=== PATIENT | female | born 1970 | race Caucasian/White ===

== ENCOUNTER 2021-12-04 13:06 | Emergency (ER) | payer OTHER, SELFPAY ==
[2021-12-04 13:25] VITALS: BP 113/61; PULSE 55; RESP 16; TEMP 36; O2SAT 98
--- NOTE | 2021-12-04 14:17 | ED.URI ---
HPI - URI/Sore Throat General Chief Complaint: Upper Respiratory Infection Stated Complaint: congestion, sore throat Time Seen by Provider: 12/04/21 13:30 Source: patient Mode of arrival: ambulatory Limitations: no limitations History of Present Illness HPI Narrative: Mrs. Platt is a 51-year-old female patient presenting to the clinic today with complaints of cough/ congestion, sore throat, and sinus pressure x2 weeks. She reports she is having greenish colored phlegm. She reports she had fever at the beginning of her symptoms however fever has now resolved. States that her was tested positive for COVID yesterday MD elicited complaint: sore throat and nasal congestion Related Data Home Medications Medication Instructions Recorded Confirmed buprenorphine 8 mg-naloxone 2 mg 1 film sublingual DIRECTED 12/04/21 12/04/21 sublingual film Allergies Allergy/AdvReac Type Severity Reaction Status Date / Time No Known Allergies Allergy Unverified 12/04/21 13:29 Review of Systems Review of Systems: Pertinent positives per HPI. Patient denies any fever, chills, rash, headache, visual changes, dizziness, shortness of breath, chest pain, palpitations, nausea, vomiting, diarrhea, constipation, abdominal pain, or any urinary issues. PMFSH Comments At the time of my signature, I reviewed and agree with the nursing past medical, surgical, social, and family history. There is no relevant family history pertinent to the patient complaint. Exam Narrative: General: Well-developed, well nourished, in no apparent distress Head: Normocephalic, atraumatic Eyes: Pupils equally round and reactive to light bilaterally, EOM intact, sclera and conjunctive clear, no discharge, lids normal Ears: TMs intact and clear, ear canals clear, no drainage, grossly hearing normal. Nose: Nares patent, green nasal discharge, monitor inflammation, maxillary and frontal sinus tenderness. Mouth: Oral pharynx without lesions or masses, good dentition, MMM. Neck: Supple, trachea midline, no enlargement of anterior or posterior cervical nodes, no thyroid masses or goiter palpable. Cardio: Regular rate and rhythm, s1 and s2 normal, no murmur appreciated. Resp: expiratory wheezing to the left and right middle lobe posterior, no rhonchi, rales, or rubs Course Course Emergency Course: Portions of this record may have been created with voice recognition software. Level of Care: Express Care Visit Vital Signs Vital signs: Vital Signs Temperature 36.0 C L 12/04/21 13:25 Pulse Rate 55 L 12/04/21 13:25 Respiratory Rate 16 12/04/21 13:25 Blood Pressure 113/61 12/04/21 13:25 Pulse Oximetry 98 12/04/21 13:25 Oxygen Delivery Room Air 12/04/21 13:25 Temperature 36.0 C L 12/04/21 13:25 Pulse Rate 55 L 12/04/21 13:25 Respiratory Rate 16 12/04/21 13:25 Blood Pressure 113/61 12/04/21 13:25 Pulse Oximetry 98 12/04/21 13:25 Oxygen Delivery Room Air 12/04/21 13:25 Vital signs reviewed MDM - URI/Sore Throat MDM Narrative Medical decision making narrative: at the time of visit patient is resting comfortably on the exam table. I suspect the patient has bronchitis and sinusitis. Prescription for Augmentin, albuterol inhaler, and prednisone sent to the pharmacy. Supportive measures were discussed with the patient she voiced understanding of discharge instructions and agrees to the treatment plan. Differential Diagnosis Differential diagnosis: Likely upper respiratory infection, otitis media, sinusitis, viral infection, bronchitis, influenza, pharyngitis and other ( COVID) Discharge Plan Discharge Clinical Impression: Sinusitis, Bronchitis Patient Disposition: Home, Self-Care Condition: Stable Instructions: Antibiotic Form, Sinusitis (ED), Acute Bronchitis (ED) Additional Instructions: Take prescription medications only as prescribed- albuterol inhaler, prednisone, and Augmentin Incre
== END 2021-12-04 14:22 | disposition home or self-care (01) ==
PROVIDERS: Emergency Provider Nurse Practitioner Family
DX: J32.9 Chronic sinusitis, unspecified (principal); J40 Bronchitis, not specified as acute or chronic
CPT/HCPCS: 99213; G0463

== ENCOUNTER 2023-06-15 09:06 | Outpatient (CLI) | payer OTHER, SELFPAY ==
--- NOTE | ~2023-06-15 | MMUS_ITS ---
EXAMINATION: MM diagnostic marilee BI w nam, US breast BI complete HISTORY: Bilateral breast lumps. TECHNIQUE: ML, MLO and CC 3-D tomosynthesis images of were performed and synthetic 2-D images were [employer]. Bilateral rotation lateral CC views. CAD analysis was submitted and interpreted. High resolu tion complete bilateral breast ultrasound examination including all 4 quadrants and subareolar area o f each breast was performed. COMPARISON: 02/08/2017 bilateral diagnostic mammography and bilateral complete breast ultrasound examin ation BREAST PARENCHYMAL COMPOSITION: The breasts are heterogeneously dense, which may obscure small masses . FINDINGS: MAMMOGRAPHIC FINDINGS: There is a low-density circumscribed approximately 1.4 cm opacity in the posterior outer mid left silverio ast. No suspicious mass, architectural distortion, malignant calcification, skin thickening or retraction of either breast is evident. ULTRASOUND: No suspicious mass or shadowing either breast is evident. Right breast: 2:00 6 cm from nipple: 3.8 x 5.4 mm hypoechoic lesion without internal vascularity or posterior featu res. Left breast: 12:00 6 cm from nipple: 3.4 x 4.4 mm circumscribed sonolucency with through transmission and posterio r enhancement consistent with simple cyst 1:00 8 cm from nipple: 3 x 4.4 mm dumbbell shaped circumscribed hypoechoic lesion without posterior s hadowing 2:00 7 cm from nipple: 1.4 cm circular relatively sonolucent lesion with through transmission and pos terior enhancement, likely a benign cyst IMPRESSION: 1. Benign findings 2. Routine annual mammographic screening is recommended. BI-RADS Category 2: Benign finding(s). Reviewed, dictated and finalized at location B. IMPRESSION: 1. Benign findings 2. Routine annual mammographic screening is recommended. BI-RADS Category 2: Benign finding(s).
== END 2023-06-15 09:07 ==
LOC: MICIMG 09:08
PROVIDERS: PCP Obstetrics & Gynecology; Visit Provider Obstetrics & Gynecology
DX: N63.11 Unspecified lump in the right breast, upper outer quadrant (principal); N63.22 Unspecified lump in the left breast, upper inner quadrant
CPT/HCPCS: 76641; 77062; 77066; G0279

== ENCOUNTER 2024-06-25 11:37 | Observation (INO) | payer OTHER, SELFPAY ==
--- NOTE | ~2024-06-25 | XR_ITS ---
INTRAOPERATIVE FLUOROSCOPY: CLINICAL HISTORY: 53 years old Female; RECENT LAP [facility]ENN[facility]ER IOCS PROCEDURE COMMENTS: Limited intraoperative fluoroscopy of the right upper quadrant was performed. CUMULATIVE DOSE: 42 mGy FLUOROSCOPY TIME: 159 seconds FINDINGS/IMPRESSION: Please refer to operative note for further details. Reviewed, dictated and finalized at location A.
--- NOTE | ~2024-06-25 | XR_ITS ---
EXAMINATION: XR cholangiogram surg 1st inj DATE: 06/26/2024 15:36 INDICATION: Intraoperative evaluation during laparoscopic cholecystectomy TECHNIQUE: Multiple fluoroscopic images of the right upper quadrant were obtained during intraoperati ve cholangiography. A total of 185 fluoroscopic images were obtained. The amount of fluoroscopy time used during this procedure was 0.6 minutes. Total DAP was 0.471 mGycm^2 COMPARISON: None FINDINGS: Contrast injection post cannulation of the cystic duct demonstrates filling of a normal joni earing common bile duct which tapers smoothly distally. There is a meniscus sign at the distalmost du ct consistent with obstructing stone with no contrast extending beyond the stone into the duodenum. T here is reflux of contrast into the normal-appearing intrahepatic biliary tree with subsequent spilla ge of contrast at the site of contrast injection. IMPRESSION: 1. Small obstructing stone at the distalmost common bile duct with no contrast extending into the duo denum. Dr. Reynoso discussed these findings with Dr. Zhou at the time of the procedure. Reviewed, dictated and finalized at location A. IMPRESSION: 1. Small obstructing stone at the distalmost common bile duct with no contrast extending into the duodenum. Dr. Reynoso discussed these findings with Dr. Rosa Elena ricardo at the time of the procedure.
--- NOTE | ~2024-06-25 | US_ITS ---
EXAM: ABDOMEN ULTRASOUND HISTORY: pancreatitis, cholelithiasis COMPARISON: Reference is made to CT examination of the abdomen and pelvis performed 3 hours earlier. FINDINGS: LIVER: The liver is unremarkable in echogenicity and size. The portal vein is patent, demonstrating hepatopedal flow. GALLBLADDER: Multiple stones are identified within the gallbladder, which is otherwise unremarkable. The stones are bulky and mobile. No gallbladder wall thickening or pericholecystic fluid. BILE DUCTS: Common bile duct measures 5mm. PANCREAS: Limited evaluation of the pancreas secondary to overlying bowel gas IMPRESSION: Cholelithiasis, without ultrasound evidence of cholecystitis. Reviewed, dictated and finalized at location A.
--- NOTE | ~2024-06-25 | XR_ITS ---
EXAMINATION: XR chest 1V portable DATE: 06/27/2024 16:19 INDICATION: Postoperative wheezing TECHNIQUE: frontal view of the chest was obtained. COMPARISON: Chest radiograph dated CT abdomen pelvis dated 06/25/2024 FINDINGS: Perihilar and lower lung predominant increased interstitial pattern in both lungs with some periphera l Jerod B-lines at the lateral right lower lung zone consistent with worsening mild pulmonary edema. With dense opacities at the left lower lung zone consistent with increasing small left pleural effus ion with left basilar atelectasis or pneumonia. No pneumothorax. Heart size is normal. IMPRESSION: 1. New perihilar and lower lung predominant interstitial pulmonary edema. 2. Increasing small left pleural effusion with associated left basilar atelectasis and/or pneumonia. Reviewed, dictated and finalized at location A. IMPRESSION: 1. New perihilar and lower lung predominant interstitial pulmonary edema. 2. Increasing small left pleural effusion with associated left basilar atelecta sis and/or pneumonia.
--- NOTE | ~2024-06-25 | CT_ITS ---
CLINICAL INDICATION: Mid abdominal pain COMPARISON: None. TECHNIQUE: Multiple contiguous axial images of the abdomen and pelvis were performed following the ad ministration of with 100 mL Omnipaque-350 intravenous contrast The dose-length product (DLP) was 484.05 mGy-cm. Automated exposure control and iterative reconstruction technique were employed. FINDINGS/OBSERVATIONS: Visualized lower thorax: Trace bilateral pleural effusions with adjacent compressive atelectasis. The remainder of the bilateral lung bases are clear. The heart is of normal size, without pericardial effusion. Moderate hiatal hernia is present. Liver: The liver demonstrates homogeneous enhancement and is not enlarged. Gallbladder and biliary system: The gallbladder is only minimally distended, and contains layering stones/sludge. Pancreas: The pancreas is edematous and enhances homogeneously without ductal dilatation. Inflammatory change within the lesser sac, suggesting pancreatitis. Spleen: The spleen enhances homogeneously and is not enlarged measuring 8 cm in longitudinal dimension. Kidneys: The bilateral kidneys enhance symmetrically without hydronephrosis or renal calculi. Adrenal glands: Unremarkable. Gastrointestinal tract: Colonic diverticulosis without surrounding inflammatory change. Fecal stasis within the colon. Appendix: The air-filled appendix is of normal caliber (axial series, images 123 - 160). Vasculature: Unremarkable. Lymph nodes: No pathologically enlarged or morphologically suspicious lymph nodes within the retroperitoneum or at the root of the mesentery. Pelvic structures: The bladder is distended, and otherwise unremarkable. The uterus is anteverted and anteflexed. Body wall and musculoskeletal: Small fat-containing umbilical hernia. No significant degenerative disease within the lower thoracic or lumbosacral spine. IMPRESSION: Acute pancreatitis with significant fecal stasis, as detailed above. Reviewed, dictated and finalized at location A.
--- OUTSIDE RECORDS SUMMARY | 2024-06-25 11:40 | XMS_ITS | Continuity of Care Document ---
Author Organization [facility] Address [address] [place] [address] [facility] [address] [place] [address] Phone Care Team Providers Care Hammer Runner Name Role Phone Fran Acevedo Unavailable Unavailable Procedures Procedure Date Office/outpatient Visit, [facility] Advance Directives Directive Yes / No Effective Date File Name No Information Encounters Encounter Description Practice Location Reason(s) For Visit Diagnoses Date Provider Providers Copied on Encounter Office/outpat ient Visit, [facility], [address], [place], [place], [id number], [place] tel:[phone] [facility] No Information [address] Curtis Peters. [address] [facility] [address], [place], [address], [place]. tel:[phone] Referring Provider: Ayden Tejeda, [address] [place], [place], [facility]. tel:[phone] Family History Family Member Type Diagnosis Age At Onset No Information Payers Payer name Insurance type Covered green party ID Authoriza tion(s) No Information Social History Type Description Quantity Date Captured Comments Sex Female Smoking Status No Information Chief Complaint And Reason For Visit No Information Reason For Referral Reason For Referral No Information History Of Present Illness Encounter Date Complaint History Of Prese nt Illness No Information Functional Status Date Functional Assessmen t No Information Instructions Date Instruction Additional Infor mation No Information Assessments Type Assessment Date No Information Patient Care Teams Name Effective Dates (start - stop) Status Members No Information
[2024-06-25 11:41] VITALS: BP 128/76; PULSE 78; RESP 20; TEMP 36.2; O2SAT 98
[2024-06-25 12:37] LABS: Basophils Percent Auto 0.1 % (0.2-1.2); Eosinophils Percent Auto 0.1 % (0-4.4); Hemoglobin 13.4 g/dL (12.0-15.0); Immature Granulocyte Absolute 0.07 K/mm3 (0.00-0.031); Immature Granulocyte Percent A 0.5 % (0-0.5); Lymphocytes Absolute Auto 1.19 K/mm3 (0.9-3.2); Lymphocytes Percent Auto 8.5 % (18.3-44.2); Mean Corpuscular HGB Conc 33.5 g/dl (32-36); Mean Corpuscular Hemoglobin 29.5 pg (26-34); Mean Corpuscular Volume 87.9 fl (80-100); Monocytes Percent Auto 6.8 % (2.6-8.5); Neutrophils Absolute Auto 11.8 K/mm3 (1.3-6.7); Platelet Count Result 199 k/mm3 (150-375); Red Blood Count 4.55 M/mm3 (4.2-5.4); White Blood Count 14.1 K/mm3 (4.5-10.0)
--- OUTSIDE RECORDS SUMMARY | 2024-06-25 12:39 | XMS_ITS | Continuity of Care Document ---
Author Organization [facility] Address [address] [place] [address] [facility] [address] [place] [address] Phone Care Team Providers Care Desk Lieutenant Name Role Phone Fran Aceveod Unavailable Unavailable Procedures Procedure Date Office/outpatient Visit, [facility] Advance Directives Directive Yes / No Effective Date File Name No Information Encounters Encounter Description Practice Location Reason(s) For Visit Diagnoses Date Provider Providers Copied on Encounter Office/outpat ient Visit, [facility], [address], [place], [place], [id number], [place] tel:[phone] [facility] No Information [address] Curtis Peters. [address] [facility] [address], [place], [address], [place]. tel:[phone] Referring Provider: Ayden Tejeda, [address] [place], [place], [facility]. tel:[phone] Family History Family Member Type Diagnosis Age At Onset No Information Payers Payer name Insurance type Covered constitution party ID Authoriza tion(s) No Information Social [...]
[2024-06-25 12:49] LABS: Alanine Aminotransferase 163 U/L (6-35); Albumin Level 4.4 g/dL (3.5-5.1); Alkaline Phosphatase 116 U/L (38-126); Anion Gap 8 mmol/L (4-12); Aspartate Amino Transferase 55 U/L (14-36); Bilirubin,Total 0.7 mg/dL (0.2-1.3); Blood Urea Nitrogen 17 mg/dL (7-17); Calcium 8.8 mg/dL (8.4-10.2); Carbon Dioxide 30 mmol/L (22-30); Chloride 96 mmol/L (98-107); Estimated CRCL calculation 86 ml/min; Estimated Glomerular Filt Rate > 60; Glucose 118 mg/dL (65-110); Lipase 442 U/L (23-300); Potassium 3.7 mmol/L (3.4-5.0); Sodium 134 mmol/L (137-145)
--- NOTE | 2024-06-25 12:51 | ED.ABDPAIN ---
HPI - Abdominal Pain General Chief Complaint: Abdominal Pain Stated Complaint: stomach pain, constipation Time Seen by Provider: 06/25/24 12:01 Source: patient Mode of arrival: ambulatory Limitations: no limitations History of Present Illness HPI narrative: Patient is a 53 y/o female who presents to the ED with report of upper abdominal pain. Patient reports she has been having pain throughout her upper abdomen/periumbilical region since Monday. States pain has been persistent. Denies aggravating or alleviating factors. States she has had intermittent N/V, decreased appetite. Reports pain radiating into her chest at 1 point over the weekend, but she denies current chest pain. Denies shortness of breath. Does admit to constipation. States her last bowel movement was last Monday or . She does have history of constipation in typically takes MiraLax daily, but has been out of this over the past few days. Has been taking Dulcolax at home without improvement. Denies fevers. Related Data Home Medications ?Medication ?Instructions ?Recorded ?Confirmed ?Last Taken ?Type No Home Medications 04/07/23 04/07/23 Unknown History Allergies Allergy/AdvReac Type Severity Reaction Status Date / Time No Known Allergies Allergy Verified 06/25/24 11:44 Review of Systems Review of Systems: All systems reviewed & are unremarkable except as noted in HPI. All systems reviewed & are unremarkable except as noted in HPI and below PMFSH Past Medical History Medical History H/O nephrolithotomy with removal of calculi Surgical History Surgical History History of dilation and curettage S/P tubal ligation History of endometrial ablation Delivery by section Family History Family History Grandparent Pancreas cancer Social History Social History Smoking status: Current some day smoker Tobacco type: cigarettes Alcohol intake: never Substance use: never Substance use type: does not use Current Housing: Decline to Answer Concerned About Future Housing: Decline to Answer Difficulty Paying Gas/Electric Bills: Decline to Answer Difficulty Paying for Meds: Decline to Answer Currently Unemployed: Decline to Answer Education: Decline to Answer Difficulty w/ Childcare or Family Care: Decline to Answer Living arrangements: with family Occupation/Education: occupation Additional occupation/education comments: [employer] Gender identity (if verbalized by the patient): Female Sexual Orientation (if Verbalized by the Patient): Straight or Heterosexual Exam Narrative: GENERAL: Mildly uncomfortable appearing, well-nourished, non-toxic, in no acute distress. HEAD: Normocephalic, atraumatic. RESPIRATORY: Airway patent, respirations nonlabored. Clear to auscultation bilaterally, no rales, rhonchi, wheezing. CARDIOVASCULAR: Regular rate and rhythm without murmurs, rubs, or gallops. ABDOMINAL: Soft, mild tenderness palpation in epigastric region, periumbilical region left lower quadrant, nondistended. Normoactive BS. MUSCULOSKELETAL: Moves all extremities. No gross deformities. SKIN: Warm, dry, normal color. NEURO: A&O X3. Speech clear. Cranial nerves II-XII grossly intact. Steady gait. No ataxic movements. PSYCHIATRIC: Appropriate mood and affect. Normal interaction. Course Vital Signs Vital signs: Vital Signs Temperature 97.2 F L 06/25/24 11:41 Pulse Rate 78 06/25/24 11:41 Respiratory Rate 06/25/24 11:41 Blood Pressure 128/76 06/25/24 11:41 Pulse Oximetry 98 06/25/24 11:41 Oxygen Delivery Room Air 06/25/24 11:41 Temperature 97.2 F L 06/25/24 11:41 Pulse Rate 78 06/25/24 11:41 Respiratory Rate 20 06/25/24 11:41 Blood Pressure 128/76 06/25/24 11:41 Pulse Oximetry 98 06/25/24 11:41 Oxygen Delivery Room Air 06/25/24 11:41 MDM - Abdominal Pain MDM Narrative Medical decision making narrative: Patient presented to ED with epigastric and periumbilical abdominal pain that began over the weekend. Associated with nausea, vomiting, decreased appetite. Vital signs are stable upon arrival. Cbc with blood cell count of 14.1. Neutrophil predominance. No bandemia. CMP with stable electrolytes, stable kidney function. Blood sugar or 118. Mild transaminitis noted, AST 55, ALT 163. Normal total bilirubin, normal alk-phos. Lipase is mildly elevated to 442. EKG without concerning ischemic changes. Trop undetectable. UA w/o signs of infection. CT scan of abdomen/pelvis was obtained and showing findings consistent with acute pancreatitis, significant fecal stasis. Gallbladder is minimally distended and does show evidence of stones/sludge. Patient denies any previous history of pancreatitis. Denies ETOH use. Is not on any diuretic therapy. Patient given 2L fluid. Has required multiple doses of pain medication, with improvement of pain, but still having persistent discomfort, difficulty keeping down food/drink. Medical Records Attestation: I reviewed the patient's medical records. Lab Data Attestation: I reviewed the patient's lab results. 06/25/24 12:32 06/25/24 12:32 Labs: Lab Results 06/25/24 06/25/24 Range/Units 12:32 13:30 WBC 14.1 H (4.5-10.0) K/mm3 RBC 4.55 (4.2-5.4) M/mm3 Hgb 13.4 (12.0-15.0) g/dL Hct 40.0 (37.0-47.0) % MCV 87.9 (80-100) fl MCH 29.5 (26-34) pg MCHC 33.5 (32-36) g/dl RDW 12.0 (11.5-14.5) % Plt Count 199 (150-375) k/mm3 MPV 10.0 (7.4-10.4) fl Immature Gran % (Auto) 0.5 (0-0.5) % Neut % (Auto) 84.0 H (45.5-73.1) % Lymph % (Auto) 8.5 L (18.3-44.2) % [place] % (Auto) 6.8 (2.6-8.5) % Eos % (Auto) 0.1 (0-4.4) % Baso % (Auto) 0.1 L (0.2-1.2) % Lymph # (Auto) 1.19 (0.9-3.2) K/mm3 [place] # (Auto) 1.0 H (0.1-0.6) K/mm3 Eos # (Auto) 0.0 (0-0.3) K/mm3 Baso # (Auto) 0.0 (0.0-0.1) K/mm3 Abs Immat Gran (auto) 0.07 H (0.00-0.031) K/mm3 Absolute Neuts (auto) 11.8 H (1.3-6.7) K/mm3 Absolute Nucleated RBC 0.000 (0.0-0.012) K/mm3 Nucleated RBC % 0.0 (0.0-0.2) % Sodium 134 L (137-145) mmol/L Potassium 3.7 (3.4-5.0) mmol/L Chloride 96 L (98-107) mmol/L Carbon Dioxide 30 (22-30) mmol/L Anion Gap 8 (4-12) mmol/L BUN 17 (7-17) mg/dL Creatinine 0.65 L (0.7-1.0) mg/dL Estim Creat Clear Calc 86 ml/min Estimated GFR > 60 (59 - ) Glucose 118 H (65-110) mg/dL Calcium 8.8 (8.4-10.2) mg/dL Total Bilirubin 0.7 (0.2-1.3) mg/dL AST 55 H (14-36) U/L ALT 163 H (6-35) U/L Alkaline Phosphatase 116 (38-126) U/L Troponin I < 0.012 (0.000-0.034) ng/mL Total Protein 8.0 (6.3-8.2) g/dL Albumin 4.4 (3.5-5.1) g/dL Lipase 442 H (23-300) U/L Urine Color Yellow (Yellow) Urine Appearance Clear (Clear) Urine pH 5.0 (5.0-9.0) Ur Specific [place] > 1.045 H (1.001-1.035) Urine Protein 1+ H (Negative) mg/dL Urine Glucose (UA) Negative (Negative) mg/dL Urine Ketones Negative (Negative) mg/dL Ur Blood (Man) Negative (Negative) Urine Nitrate Negative (Negative) Urine Bilirubin Negative (Negative) Urine Urobilinogen 0.2 (<2.0) mg/dL Add Ur Microanalysis Reviewed Leukocyte Esterase Rfl Negative (Negative) TE/UL Urine RBC 0-2 (0-2) /hpf Urine WBC 0-5 (0-3) /hpf Ur Squamous Epith Cells Few (Few) /hpf Urine Bacteria Rare /hpf Urine Casts 0-2 Imaging Data Radiologist's impression: ITS Impressions Abdomen/Pelvis CT 06/25/24 13:38 IMPRESSION: Acute pancreatitis with significant fecal stasis, as detailed above. Discharge Plan Discharge Clinical Impression: Gallbladder sludge Acute pancreatitis Qualifiers: Pancreatitis type: unspecified pancreatitis type Acute pancreatitis complication: no infection or necrosis Qualified Code(s): K85.90 - Acute pancreatitis without necrosis or infection, unspecified Cholelithiasis Qualifiers: Cholelithiasis location: gallbladder Cholecystitis presence: without cholecystitis Biliary obstruction: without biliary obstruction Qualified Code(s): K80.20 - Calculus of gallbladder without cholecystitis without obstruction Patient Disposition: Still a Patient Condition: Stable Patient Language: Upper Sorbian Prescriptions: No Action No Home Medications Follow-up/Referrals: UNKNOWN,DOCTOR [Primary Care Provider] -
--- NOTE | 2024-06-25 12:58 | ECG_ITS ---
Test Date: 2024-06-25 13:25:28 Measurements Intervals [place] Rate: 66 P: 40 NE: 163 QRS: 12 QRSD: 85 T: 31 QT: 404 QTc: 425 Interpretive Statements SINUS RHYTHM NONSPECIFIC T-WAVE ABNORMALITY No previous ECG available for comparison Electronically Signed On 06-25-2024 13:45:39 CDT by Scott Reardon M.D.
[2024-06-25] MEDS: SODIUM CHLORIDE 0.9% IV 1,000 ML 999 ML IV CONT ×2 (12:59→14:48)
[2024-06-25] MEDS: MORPHINE SULFATE (*CRX) 4 MG/ML INJ IV PUSH ×3 (12:59→16:50)
[2024-06-25] MEDS: ONDANSETRON INJ 4 MG/2 ML VIAL IV PUSH ×3 (13:00→22:24)
[2024-06-25 13:41] LABS: Troponin I < 0.012 ng/mL (0.000-0.034)
[2024-06-25 14:05] VITALS: BP 119/81; PULSE 71; RESP 16; TEMP 36.8; O2SAT 98
[2024-06-25 14:06] LABS: Add Urine Microscopic? YES; Appearance Urine Clear (Clear); Bacteria Urine Rare /hpf; Bilirubin Urine Negative (Negative); Blood Urine Negative (Negative); Color Urine Yellow (Yellow); Glucose Urine UA Negative (Negative); Ketones Urine Negative (Negative); Leukocyte Esterase Ur Negative LEU/UL (Negative); Need Manual Microscopic Reviewed; Nitrate Urine Negative (Negative); Non Pathogenic Casts 0-2; Protein Urine 1+ mg/dL (Negative); RBC Urine 0-2 /hpf (0-2); Specific Grav Ur > 1.045 (1.001-1.035); Squamous Epithelial Cell Urine Few /hpf (Few); Urobilinogen Urine 0.2 mg/dL (<2.0); WBC Urine 0-5 /hpf (0-3)
[2024-06-25 16:11] LABS: Triglycerides 129 mg/dL (<150)
[2024-06-25] MEDS: SODIUM CHLORIDE 0.9% IV 1,000 ML 200 ML IV CONT ×2 (16:50→22:23)
[2024-06-25 16:58] VITALS: BP 123/86; PULSE 81; RESP 18; TEMP 36.7; O2SAT 98
--- NOTE | 2024-06-25 17:16 | ADMGEN ---
This patient, Radha Platt, was admitted to Medical Room 261-01. Patient/family oriented to hospital policies and general routines including ID bracelet, bed and alarms, visiting hours, pain management, procedures, bathroom and other care routines, personal items, smoking policy, room service/diet, and visiting hours. Information on how to activate the Rapid Response Team has been discussed. Patient/Family are encouraged to report perceived risks to care and to ask questions if they do not understand what they are told or what they should do.
--- NOTE | 2024-06-25 17:39 | P.HP_ITS ---
H&P: HPI History of Present Illness Date/Time: 06/25/24 17:39 Chief Complaint: Abdominal Pain, Constipation Narrative: 53 y/o F with PMH of kidney stones presents here with abdominal pain and constipation. The patient presents here from home on 06/25 for further evaluation of abdominal pain and constipation. She reports symptom onset on Monday night, 06/22. She describes the abdominal pain started as upper/between her breasts and is now more midline, nonradiating, constant with changes in severity, aggravated by movement, and alleviated by drawing her knees to her chest. She reports associated nausea, vomiting, and chills. She denies fever or body aches. She reports her last bowel movement was on 06/19 or 06/20. She reports a history of chronic constipation for which she takes MiraLax daily. However, she reports she ran out of this a few days ago and has not taken it. She did take Dulcolax at home but did not produce a bowel movement. Initial VS at presentation: 97.2? F, HR 78, R 20, 128/76, and 98% on RA. ED workup showed: WBC 14.1, no anemia, sodium 134, creatinine 0.65 and GFR >60, total bilirubin 0.7, AST 55, ALT 163, initial troponin negative, triglycerides normal, and lipase 442. UA showed a high specific gravity and 1+ protein otherwise unremarkable. CT of the abdomen/pelvis showed acute pancreatitis with significant fecal stasis. Ultrasound of the RUQ showed cholelithiasis without significant evidence of cholecystitis. Review of Systems Review of Systems: All systems reviewed & are unremarkable except as noted in HPI and below [facility] Past Medical History Medical History Kidney stones H/O nephrolithotomy with removal of calculi Surgical History Surgical History History of dilation and curettage S/P tubal ligation History of endometrial ablation Delivery by section Family History Family History Grandparent Pancreas cancer Social History Social History Smoking packs per day: 1 Smoking cigarettes per day: 20.0 Years smoked: 40 Smoking pack-years: 40.00 Smoking status: Current every day smoker Tobacco type: cigarettes Alcohol intake: never Substance use: never Substance use type: does not use Do You Feel Safe in your Home?: Yes Lack of Transportation: No Lack of Food: Never True Current Housing: I Have Housing Concerned About Future Housing: No Difficulty Paying Gas/Electric Bills: No Difficulty Paying for Meds: No Currently Unemployed: No Education: Trade/Vocational Certificate Difficulty w/ Childcare or Family Care: No Living arrangements: with family Occupation/Education: occupation Additional occupation/education comments: [employer] Gender identity (if verbalized by the patient): Female Sexual Orientation (if Verbalized by the Patient): Straight or Heterosexual Spiritual care concerns: No Meds Home Medications and Allergies Home Medications ?Medication ?Instructions ?Recorded ?Confirmed ?Type buprenorphine 8 mg-naloxone 2 mg 1 film sublingual Q24H 06/25/24 06/25/24 History sublingual film Allergies Allergy/AdvReac Type Severity Reaction Status Date / Time No Known Allergies Allergy Verified 06/25/24 17:19 Vital Signs Vital Signs - 24 hr 06/25/24 11:41 06/25/24 14:05 06/25/24 16:58 Temperature 97.2 F L 98.2 F 98.1 F Pulse Rate 78 71 81 Respiratory Rate 20 16 18 Blood Pressure 128/76 119/81 123/86 Pulse Oximetry 98 98 98 Oxygen Delivery Room Air Exam Const: General: comfortable and no acute distress Other: , female, nontoxic appearance HENMT: Face/Nose/Sinus: Normal nares present Mouth: Yes moist mucous membranes Eyes: General: appearance normal, both eyes and all related structures Sclera: sclerae normal Pupils: Equal, round and reactive pupils present EOM: EOMs intact bilaterally Resp: Effort & Inspection: normal respiratory effort Auscultation: clear to auscultation bilaterally Cardio: Rate: regular rate Rhythm: regular rhythm Other: S1-S2 present without murmur, rub, ectopy GI: Other: Mild tenderness in the upper abdomen. Abdomen soft, nondistended, normoactive bowel sounds in all quadrants. Skin: General skin exam: normal color and no rashes or lesions noted Wounds: no wounds Neuro: Speech: normal speech Motor exam (neuro): 5/5 motor strength present throughout Sensory Exam: normal sensation Other: A&O x4 Extrem: General: normal to inspection Psych: Mental Status: mental status grossly normal Affect: normal affect Other: Good insight and judgment, very pleasant H&P: Results Labs Labs: Short CBC 06/25/24 Range/Units 12:32 WBC 14.1 H (4.5-10.0) K/mm3 Hgb 13.4 (12.0-15.0) g/dL Hct 40.0 (37.0-47.0) % Plt Count 199 (150-375) k/mm3 BMP 06/25/24 12:32 Sodium 134 L Potassium 3.7 Chloride 96 L Carbon Dioxide 30 BUN 17 Creatinine 0.65 L Glucose 118 H Calcium 8.8 Cardiac Enzymes 06/25/24 Range/Units 12:32 Troponin I < 0.012 (0.000-0.034) ng/mL Liver Function 06/25/24 Range/Units 12:32 Total Bilirubin 0.7 (0.2-1.3) mg/dL AST 55 H (14-36) U/L ALT 163 H (6-35) U/L Alkaline Phosphatase 116 (38-126) U/L Albumin 4.4 (3.5-5.1) g/dL Urine 06/25/24 Range/Units 13:30 Urine Color Yellow (Yellow) Urine Appearance Clear (Clear) Urine pH 5.0 (5.0-9.0) Ur Specific [place] > 1.045 H (1.001-1.035) Urine Protein 1+ H (Negative) mg/dL Urine Glucose (UA) Negative (Negative) mg/dL Assessment and Plan Assessment and plan (1) Acute pancreatitis: Qualifiers: Acute pancreatitis complication: no infection or necrosis Pancreatitis type: unspecified pancreatitis type Qualified Code(s): K85.90 - Acute panc reatitis without necrosis or infection, unspecified Code(s): K85.90 - Acute pancreatitis without necrosis or infection, unspecified Status: Acute Assessment and Plan: - acute, suspected to be secondary to cholelithiasis - IVF: 2L -> 200 mL/hr - trend lipase, currently: 442 - AST 55, ALT 163, Total Bili WNL - triglycerides within normal limits - analgesics and antiemetics prn - CT abd/pelvis: Acute pancreatitis with significant fecal stasis - no ETOH use - general surgery and GI consulted for possible GB etiology - NPO (2) Cholelithiasis: Qualifiers: Biliary obstruction: without biliary obstruction Cholecystitis presence: without cholecystitis Cholelithiasis location: gallbladder Qualified Code(s): K80.20 - Calculus of gallbladder without cholecystitis without obstruction Code(s): K80.20 - Calculus of gallbladder without cholecystitis without obstruction Status: Acute Assessment and Plan: - acute pancreatitis w/mild elevation in LFTs recent concerns for gallbladder etiology. Ultrasound of the right upper quadrant showed cholelithiasis without evidence of cholecystitis - general surgery consulted - GI consulted for possible ERCP/MRCP - trend LFTs (3) Constipation: Qualifiers: Constipation type: unspecified constipation type Qualified Code(s): K59.00 - Constipation, unspecified Code(s): K59.00 - Constipation, unspecified Status: Acute Assessment and Plan: - history of chronic constipation on MiraLax daily however has been out, will restart - soap fred enema, Dulcolax scheduled HS - IV fluids Plan Diet: NPO with ice chips GI Prophylaxis: Not currently indicated DVT Prophylaxis: SCDs IV fluids: 2L bolus -> 200 mL/hr Lines/Tubes: Peripheral IV Code Status: Full code Quality VTE Prophylaxis VTE prophylaxis: mechanical ordered Hospitalist MIPS Advance Care Plan I have confirmed that the patient's Advanced Care Plan is present, code status is documented, or surrogate decision maker is listed in patient medical record.: Yes Medication Reconciliation I have utilized all available resources to obtain, update and review the patients current medications (includes all prescriptions, OTC, herbals, cannabis, and nutritional supplements).: Yes
[2024-06-25 18:51] VITALS: BMI 27.3
[2024-06-25 18:57] VITALS: BP 119/59; PULSE 69; RESP 19; O2SAT 98
[2024-06-25] MEDS: SENNA/DOCUSATE SODIUM TABLET 1 TAB PO (20:08)
[2024-06-25 22:00] VITALS: BP 107/47; PULSE 65; RESP 18; TEMP 37.3; O2SAT 95
[2024-06-26] VITALS (13 sets, daily range): BP systolic 93–114; BP diastolic 32–58; PULSE 45–60; RESP 12–18; TEMP 36.1–37.3; O2SAT 91–100
[2024-06-26] MEDS: MORPHINE SULFATE (*CRX) 4 MG/ML INJ IV PUSH ×2 (00:28→04:04)
[2024-06-26] MEDS: SODIUM CHLORIDE 0.9% IV 1,000 ML 200 ML IV CONT ×2 (03:27→08:57)
[2024-06-26 05:02] LABS: Basophils Percent Auto 0.1 % (0.2-1.2); Eosinophils Percent Auto 0.4 % (0-4.4); Hematocrit 31.2 % (37.0-47.0); Hemoglobin 10.2 g/dL (12.0-15.0); Immature Granulocyte Absolute 0.14 K/mm3 (0.00-0.031); Immature Granulocyte Percent A 1.3 % (0-0.5); Lymphocytes Absolute Auto 1.01 K/mm3 (0.9-3.2); Lymphocytes Percent Auto 9.1 % (18.3-44.2); Mean Corpuscular HGB Conc 32.7 g/dl (32-36); Mean Corpuscular Hemoglobin 29.2 pg (26-34); Mean Corpuscular Volume 89.4 fl (80-100); Mean Platelet Volume 10.7 fl (7.4-10.4); Monocytes Absolute Auto 0.8 K/mm3 (0.1-0.6); Monocytes Percent Auto 6.8 % (2.6-8.5); Neutrophils Absolute Auto 9.2 K/mm3 (1.3-6.7); Neutrophils Percent Auto 82.3 % (45.5-73.1); Platelet Count Result 154 k/mm3 (150-375); Red Blood Count 3.49 M/mm3 (4.2-5.4); White Blood Count 11.1 K/mm3 (4.5-10.0)
[2024-06-26 05:16] LABS: Alanine Aminotransferase 92 U/L (6-35); Albumin Level 3.2 g/dL (3.5-5.1); Alkaline Phosphatase 112 U/L (38-126); Anion Gap 6 mmol/L (4-12); Aspartate Amino Transferase 35 U/L (14-36); Bilirubin,Total 0.5 mg/dL (0.2-1.3); Blood Urea Nitrogen 13 mg/dL (7-17); Calcium 7.3 mg/dL (8.4-10.2); Carbon Dioxide 25 mmol/L (22-30); Chloride 104 mmol/L (98-107); Estimated CRCL calculation 93 ml/min; Estimated Glomerular Filt Rate > 60; Glucose 96 mg/dL (65-110); Lipase 176 U/L (23-300); Potassium 3.2 mmol/L (3.4-5.0); Sodium 135 mmol/L (137-145)
[2024-06-26 08:44] LABS: Magnesium 1.9 mg/dL (1.6-2.3)
[2024-06-26] MEDS: POTASSIUM CHLORIDE INJ 40 MEQ in SODIUM CHLORIDE 0.9% IV 500 ML 130 MEQ IVPB (08:57)
[2024-06-26] MEDS: polyethylene glycoL 3350 17 GM POWD.PACK PO (08:58)
--- NOTE | 2024-06-26 10:18 | P.CONGS_ITS ---
Assessment and Plan Assessment and plan (1) Acute pancreatitis: Qualifiers: Acute pancreatitis complication: no infection or necrosis Pancreatitis type: unspecified pancreatitis type Qualified Code(s): K85.90 - Acute pancreatitis without necrosis or infection, unspecified Code(s): K85.90 - Acute pancreatitis without necrosis or infection, unspecified Status: Acute Assessment and Plan: Patient presents with acute pancreatitis. Etiology most likely biliary. No alcohol use, triglycerides are normal. Cholelithiasis seen on both CT and ultrasound, without any evidence of cholecystitis. Lipase was only 400 on admission, but is down to normal today. Her abdominal pain has improved significantly. We would recommend proceeding with a laparoscopic cholecystectomy with intraoperative cholangiogram by Dr. Maki under general anesthesia. Description of the procedure, risks, benefits, alternatives, and expected recovery were discussed with the patient in detail. We discussed the risks of bile leak and bile duct injury, liver/bowel injury, bleeding, and infection. Also discussed the possibility of having to convert to an open procedure if necessary. We will proceed today as her pancreatitis has improved. We also discussed that if the IOC shows any filling defects or concern for a common duct stone, then she may need an ERCP. She understands and agrees to proceed with surgery. (2) Cholelithiasis: Qualifiers: Biliary obstruction: without biliary obstruction Cholecystitis presence: without cholecystitis Cholelithiasis location: gallbladder Qualified Code(s): K80.20 - Calculus of gallbladder without cholecystitis without obstruction Code(s): K80.20 - Calculus of gallbladder without cholecystitis without obstruction Status: Acute Assessment and Plan: See plan above. Cholelithiasis noted on imaging without any biliary duct dilatation or CT evidence of choledocholithiasis. Bilirubin is normal. She could have passed a stone. Will plan for an IOC during surgery. GI also following. (3) Constipation: Qualifiers: Constipation type: unspecified constipation type Qualified Code(s): K 59.00 - Constipation, unspecified Code(s): K59.00 - Constipation, unspecified Status: Acute Assessment and Plan: Large amount of stool in the colon, mostly the more proximal in the right and transverse colon. She has had 2 bowel movement after an enema, but likely needs more bowel stimulation. Continue Miralax for now and could consider giving more stimulation postoperatively. Plan I have discussed the patient's case and plan of care with Dr. Maki. History of Present Illness Consult details Consult date: 06/26/24 Reason for consult: other (Acute pancreatitis, cholelithiasis) Requesting physician: Kaya Gaspar PA-C Narrative: This is a 53-year-old woman with chronic constipation, who presented to the ED yesterday for evaluation of epigastric abdominal pain. Her pain started Monday after, 4 days ago. The only thing she had ate that day was a [employer] breakfast sandwich earlier in the morning. She had taken a nap in the afternoon after working and woke up with severe epigastric abdominal pain that radiated into her mid chest. The pain was severe and she had associated nausea and multiple episodes of vomiting. Initially, she was concerned it was related to constipation, which she has dealt with for many years. She has never had a colonoscopy in the past and does not have a PCP, but has recently thought about establishing care with a PCP. She typically takes MiraLax daily for constipation, but has not had any the past few days. Her pain has remained constant over the course of the next few days and she has not been able to eat anything since Monday. Due to her persistent symptoms, she decided to come in for evaluation yesterday. Labs showed white blood cell count 14,100, sodium 134, BUN 17, creatinine 0.65, total bilirubin normal, AST 55, ALT 163, alk-phos is normal, troponin normal, and lipase 442. CT scan of the abdomen and pelvis showed evidence of acute pancreatitis with significant fecal stasis, and layering gallstones. Right upper quadrant abdominal ultrasound showed cholelithiasis without ultrasound evidence of cholecystitis. She was started on MiraLax daily and received an enema. She has reportedly had 2 bowel movements since the enema. Our service was consulted for pancreatitis and cholelithiasis. She reports her abdominal pain has improved significantly over the past 2 days. This morning, she isn't having much pain, but feels very fatigued. No history of pancreatitis. Denies any alcohol use. Triglycerides normal. Lipase came down to normal today. Liver enzymes trending down. Review of Systems 2 Review of Systems: All systems reviewed & are unremarkable except as noted in HPI and below PMFSH Past Medical History Medical History Kidney stones H/O nephrolithotomy with removal of calculi Surgical History Surgical History History of dilation and curettage S/P tubal ligation History of endometrial ablation Delivery by section x2 Family History Family History Grandparent Pancreas cancer Social History Social History Smoking packs per day: 1 Smoking cigarettes per day: 20.0 Years smoked: 40 Smoking pack-years: 40.00 Smoking status: Current every day smoker Tobacco type: cigarettes Alcohol intake: never Substance use: never Substance use type: does not use Do You Feel Safe in your Home?: Yes Lack of Transportation: No Lack of Food: Never True Current Housing: I Have Housing Concerned About Future Housing: No Difficulty Paying Gas/Electric Bills: No Difficulty Paying for Meds: No Currently Unemployed: No Education: Trade/Vocational Certificate Difficulty w/ Childcare or Family Care: No Living arrangements: with family Occupation/Education: occupation Additional occupation/education comments: [employer] Gender identity (if verbalized by the patient): Female Sexual Orientation (if Verbalized by the Patient): Straight or Heterosexual Spiritual care concerns: No Meds Home Medications and Allergies Home Medications ?Medication ?Instructions ?Recorded ?Confirmed ?Type buprenorphine 8 mg-naloxone 2 mg 1 film sublingual Q24H 06/25/24 06/25/24 History sublingual film Allergies Allergy/AdvReac Type Severity Reaction Status Date / Time No Known Allergies Allergy Verified 06/25/24 17:19 Vital Signs Vital Signs - 24 hr 06/25/24 11:41 06/25/24 14:05 06/25/24 16:58 Temperature 97.2 F L 98.2 F 98.1 F Pulse Rate 78 71 81 Respiratory Rate 20 16 18 Blood Pressure 128/76 119/81 123/86 Pulse Oximetry 98 98 98 Oxygen Delivery Room Air 06/25/24 18:57 06/25/24 20:05 06/25/24 22:00 Temperature 99.2 F Pulse Rate 69 65 Respiratory Rate 19 18 Blood Pressure 119/59 L 107/47 L Pulse Oximetry 98 95 Oxygen Delivery Room Air 06/26/24 06:00 Temperature 99.2 F Pulse Rate 60 Respiratory Rate 18 Blood Pressure 93/32 L Pulse Oximetry 97 Oxygen Delivery Exam 2 Const: General: comfortable and no acute distress Nutritional Appearance: a verage body habitus Orientation/consciousness: patient oriented x3 HENMT: Head: normocephalic and atraumatic Ears: hearing grossly normal bilaterally Mouth: Yes moist mucous membranes Eyes: General: appearance normal, both eyes and all related structures P upils: Equal, round and reactive pupils present Neck: Neck: normal visual inspection and full ROM Resp: Effort & Inspection: no respiratory distress Auscultation: clear to auscultation bilaterally Cardio: Rate: regular rate Rhythm: regular rhythm Peripheral pulses: P eripheral pulses 2+ throughout GI: Inspection: other (mildly distended) GI Palp: Yes Soft to palpation Skin: General skin exam: normal color Neuro: General: moves all extremities and no focal motor deficits Speech: n ormal speech Motor exam (neuro): 5/5 motor strength present throughout Extrem: General: normal to inspection and no edema Psych: Mental Status: mental status grossly normal Attitude: cooperative Insight: Good insight present (Psych) Judgement: Good judgement present (Psych) Results Labs 06/26/24 04:22 06/26/24 04:22 Labs: Abnormal lab results 06/25/24 06/25/24 06/26/24 Range/Units 12:32 13:30 04:22 WBC 14.1 H 11.1 H (4.5-10.0) K/mm3 RBC 3.49 L (4.2-5.4) M/mm3 Hgb 10.2 L D (12.0-15.0) g/dL Hct 31.2 L (37.0-47.0) % MPV 10.7 H (7.4-10.4) fl Immature Gran % (Auto) 1.3 H (0-0.5) % Neut % (Auto) 84.0 H 82.3 H (45.5-73.1) % Lymph % (Auto) 8.5 L 9.1 L (18.3-44.2) % Baso % (Auto) 0.1 L 0.1 L (0.2-1.2) % [place] # (Auto) 1.0 H 0.8 H (0.1-0.6) K/mm3 Abs Immat Gran (auto) 0.07 H 0.14 H (0.00-0.031) K/mm3 Absolute Neuts (auto) 11.8 H 9.2 H (1.3-6.7) K/mm3 Sodium 134 L 135 L (137-145) mmol/L Potassium 3.2 L (3.4-5.0) mmol/L Chloride 96 L (98-107) mmol/L Creatinine 0.65 L 0.60 L (0.7-1.0) mg/dL Glucose 118 H (65-110) mg/dL Calcium 7.3 L (8.4-10.2) mg/dL AST 55 H (14-36) U/L ALT 163 H 92 H (6-35) U/L Total Protein 6.0 L (6.3-8.2) g/dL Albumin 3.2 L (3.5-5.1) g/dL Lipase 442 H (23-300) U/L Ur Specific [place] > 1.045 H (1.001-1.035) Urine Protein 1+ H (Negative) mg/dL Diabetes panel 06/25/24 06/26/24 Range/Units 12:32 04:22 Sodium 134 L 135 L (137-145) mmol/L Potassium 3.7 3.2 L (3.4-5.0) mmol/L Chloride 96 L 104 (98-107) mmol/L Carbon Dioxide 30 25 (22-30) mmol/L BUN 17 13 (7-17) mg/dL Creatinine 0.65 L 0.60 L (0.7-1.0) mg/dL Glucose 118 H 96 (65-110) mg/dL Calcium 8.8 7.3 L (8.4-10.2) mg/dL AST 55 H 35 (14-36) U/L ALT 163 H 92 H (6-35) U/L Alkaline Phosphatase 116 112 (38-126) U/L Total Protein 8.0 6.0 L (6.3-8.2) g/dL Albumin 4.4 3.2 L (3.5-5.1) g/dL Triglycerides 129 (<150) mg/dL Calcium panel 06/25/24 06/26/24 Range/Units 12:32 04:22 Calcium 8.8 7.3 L (8.4-10.2) mg/dL Albumin 4.4 3.2 L (3.5-5.1) g/dL Pituitary panel 06/25/24 06/26/24 Range/Units 12:32 04:22 Sodium 134 L 135 L (137-145) mmol/L Potassium 3.7 3.2 L (3.4-5.0) mmol/L Chloride 96 L 104 (98-107) mmol/L Carbon Dioxide 30 25 (22-30) mmol/L BUN 17 13 (7-17) mg/dL Creatinine 0.65 L 0.60 L (0.7-1.0) mg/dL Glucose 118 H 96 (65-110) mg/dL Calcium 8.8 7.3 L (8.4-10.2) mg/dL Adrenal panel 06/25/24 06/26/24 Range/Units 12:32 04:22 Sodium 134 L 135 L (137-145) mmol/L Potassium 3.7 3.2 L (3.4-5.0) mmol/L Chloride 96 L 104 (98-107) mmol/L Carbon Dioxide 30 25 (22-30) mmol/L BUN 17 13 (7-17) mg/dL Creatinine 0.65 L 0.60 L (0.7-1.0) mg/dL Glucose 118 H 96 (65-110) mg/dL Calcium 8.8 7.3 L (8.4-10.2) mg/dL Total Bilirubin 0.7 0.5 (0.2-1.3) mg/dL AST 55 H 35 (14-36) U/L ALT 163 H 92 H (6-35) U/L Alkaline Phosphatase 116 112 (38-126) U/L Total Protein 8.0 6.0 L (6.3-8.2) g/dL Albumin 4.4 3.2 L (3.5-5.1) g/dL All other labs normal.
--- NOTE | 2024-06-26 10:31 | P.PNIM_ITS ---
Progress Note: A&P Assessment and Plan (1) Acute pancreatitis: Qualifiers: Acute pancreatitis complication: no infection or necrosis Pancreatitis type: unspecified pancreatitis type Qualified Code(s): K85.90 - Acute pancreatitis without necrosis or infection, unspecified Code(s): K85.90 - Acute pancreatitis without necrosis or infection, unspecified Status: Acute Assessment and Plan: * acute, suspected to be secondary to cholelithiasis * IVF: 2L -> 200 mL/hr * trend lipase: 442>176. * AST 55>35, ALT 163>92, Total Bili WNL * triglycerides within normal limits * analgesics and antiemetics prn * CT abd/pelvis: Acute pancreatitis with significant fecal stasis * no ETOH use * general surgery and GI consulted. * NPO (2) Cholelithiasis: Qualifiers: Biliary obstruction: without biliary obstruction Cholecystitis presence: without cholecystitis Cholelithiasis location: gallbladder Qualified Code(s): K80.20 - Calculus of gallbladder without cholecystitis without obstruction Code(s): K80.20 - Calculus of gallbladder without cholecystitis without obstruction Status: Acute Assessment and Plan: * acute pancreatitis w/mild elevation in LFTs recent concerns for gallbladder etiology. Ultrasound of the right upper quadrant showed cholelithiasis without evidence of cholecystitis * general surgery consulted. NPO for Laparoscopic cholecystectomy with intraope rative cholangiogram today. * trend LFTs * AST 55>35, ALT 163>92, Total Bili WNL. (3) Constipation: Qualifiers: Constipation type: unspecified constipation type Qualified Code(s): K59.00 - Constipation, unspecified Code(s): K59.00 - Constipation, unspecified Status: Acute Assessment and Plan: * history of chronic constipation on MiraLax daily however has been out, will restart * soap fred enema, Dulcolax scheduled HS * IV fluids (4) Hypokalemia: Code(s): E87.6 - Hypokalemia Status: Acute Assessment and Plan: * Potassium 3.2. * Potassium Chloride 40 meq IVPB x1 given. * Trend level. Plan Diet: NPO with ice chips GI Prophylaxis: Not currently indicated DVT Prophylaxis: SCDs IV fluids: 2L bolus -> 200 mL/hr Lines/Tubes: Peripheral IV Code Status: Full code Subjective Date/time seen: 05/21/25 10:31 Interval history: Patient reports pain in abdomen is a 3 , constant, and cramping. Patient reports nausea. Patient denies chest pain, palpitations, headache, dizziness, or vomiting. at bedside. Review of Systems Review of Systems: All systems reviewed & are unremarkable except as noted in HPI and below Exam Const: General: no acute distress and uncomfortable Resp: Effort & Inspection: normal respiratory effort Auscultation: clear to auscultation bilaterally Cardio: Rate: regular rate Rhythm: regular rhythm GI: GI Palp: Yes Soft to palpation (mildly distended. ) Neuro: Speech: normal speech Extrem: General: no pedal edema Psych: Mental Status: mental status grossly normal Affect: normal affect Objective Data Vital Signs Vital Signs: Vital Signs - 24 hr 06/25/24 11:41 06/25/24 14:05 06/25/24 16:58 Temperature 97.2 F L 98.2 F 98.1 F Pulse Rate 78 71 81 Respiratory Rate 20 16 18 Blood Pressure 128/76 119/81 123/86 Pulse Oximetry 98 98 98 Oxygen Delivery Room Air 06/25/24 18:57 06/25/24 20:05 06/25/24 22:00 Temperature 99.2 F Pulse Rate 69 65 Respiratory Rate 19 18 Blood Pressure 119/59 L 107/47 L Pulse Oximetry 98 95 Oxygen Delivery Room Air 06/26/24 06:00 Temperature 99.2 F Pulse Rate 60 Respiratory Rate 18 Blood Pressure 93/32 L Pulse Oximetry 97 Oxygen Delivery Intake/Output Intake/Output: Intake & Output 06/23/24 06/24/24 06/25/24 06/26/24 23:59 23:59 23:59 23:59 Intake Total 3000 2000 Balance 3000 2000 Meds/Results Medications: Active Medications Generic Name Dose Route Start Last Admin Trade Name Freq PRN Reason Stop Dose Admin Acetaminophen 650 mg 06/25/24 16:17 Acetaminophen 325 Mg Tablet PO Q6H PRN Mild Pain (1-3) or Fever Hydrocodone Bitart/Acetaminophen 1 tab 06/25/24 16:17 Hydrocodone/Acetaminophen (*Crx) 5-325 Mg Tablet PO Q6H PRN Pain Rated 4-6 Calcium Carbonate 200 mg 06/25/24 19:56 Calcium Carbonate (Tums) 500 Mg (200 Mg Elemental) PO Q6H PRN Indigestion Dextrose 12.5 gm 06/25/24 16:14 Dextrose 50% 25 Gm/50 Ml Syringe IV PUSH PRN PRN Hypoglycemia Protocol Glucagon 1 mg 06/25/24 16:14 Glucagon For Inj 1 Mg Vial IM PRN PRN Hypoglycemia Protocol Glucose 15 gm 06/25/24 16:14 Glucose Oral Gel 15 Gm Of Glucse In 37.5 Gm Tube PO PRN PRN Hypoglycemia Protocol Sodium Chloride 1,000 mls @ 200 mls/hr 06/25/24 15:20 06/26/24 08:57 Normal Saline Iv IV CONT 200 mls/hr .Q5H MERRY Administration Dextrose 1,000 mls @ 100 mls/hr 06/25/24 16:14 Dextrose 5% 1,000 Ml IVPB PRN PRN Hypoglycemia Protocol Potassium Chloride 40 meq/ 520 mls @ 130 mls/hr 06/26/24 08:30 06/26/24 08:57 Sodium Chloride IVPB 06/26/24 12:29 130 mls/hr ONCE ONE Administration Morphine Sulfate 4 mg 06/25/24 16:17 06/26/24 04:04 Morphine Sulfate (*Crx) 4 Mg/Ml Inj IV PUSH 4 mg Q4H PRN Administration Pain Rated 7-10 Ondansetron HCl 4 mg 06/25/24 16:14 06/25/24 22:24 Ondansetron Inj 4 Mg/2 Ml Vial IV PUSH 4 mg Q4H PRN Administration Nausea Polyethylene Glycol 17 gm 06/26/24 09:00 06/26/24 08:58 Polyethylene Glycol 3350 17 Gm Powd.Pack PO 17 gm QAM MERRY Administration Senna/Docusate Sodium 1 tab 06/25/24 21:00 06/25/24 20:08 Senna/Docusate Sodium Tablet PO 1 tab HS MERRY Administration Radiology Results: ITS Impressions Abdomen/Pelvis CT 06/25/24 13:38 IMPRESSION: Acute pancreatitis with significant fecal stasis, as detailed above. Abdomen Ultrasound 06/25/24 16:13 IMPRESSION: Cholelithiasis, without ultrasound evidence of cholecystitis. Labs Labs: Laboratory Results - last 24 hr 06/25/24 06/25/24 06/26/24 12:32 13:30 04:22 WBC 14.1 H 11.1 H RBC 4.55 3.49 L Hgb 13.4 10.2 L D Hct 40.0 31.2 L MCV 87.9 89.4 MCH 29.5 29.2 MCHC 33.5 32.7 RDW 12.0 12.0 Plt Count 199 154 MPV 10.0 10.7 H Immature Gran % (Auto) 0.5 1.3 H Neut % (Auto) 84.0 H 82.3 H Lymph % (Auto) 8.5 L 9.1 L [place] % (Auto) 6.8 6.8 Eos % (Auto) 0.1 0.4 Baso % (Auto) 0.1 L 0.1 L Lymph # (Auto) 1.19 1.01 [place] # (Auto) 1.0 H 0.8 H Eos # (Auto) 0.0 0.0 Baso # (Auto) 0.0 0.0 Abs Immat Gran (auto) 0.07 H 0.14 H Absolute Neuts (auto) 11.8 H 9.2 H Absolute Nucleated RBC 0.000 0.000 Nucleated RBC % 0.0 0.0 Sodium 134 L 135 L Potassium 3.7 3.2 L Chloride 96 L 104 Carbon Dioxide 30 25 Anion Gap 8 6 BUN 17 13 Creatinine 0.65 L 0.60 L Estim Creat Clear Calc 86 93 Estimated GFR > 60 > 60 Glucose 118 H 96 Calcium 8.8 7.3 L Magnesium 1.9 Total Bilirubin 0.7 0.5 AST 55 H 35 ALT 163 H 92 H Alkaline Phosphatase 116 112 Troponin I < 0.012 Total Protein 8.0 6.0 L Albumin 4.4 3.2 L Triglycerides 129 Lipase 442 H 176 Urine Color Yellow Urine Appearance Clear Urine pH 5.0 Ur Specific [place] > 1.045 H Urine Protein 1+ H Urine Glucose (UA) Negative Urine Ketones Negative Ur Blood (Man) Negative Urine Nitrate Negative Urine Bilirubin Negative Urine Urobilinogen 0.2 Add Ur Microanalysis Reviewed Leukocyte Esterase Rfl Negative Urine RBC 0-2 Urine WBC 0-5 Ur Squamous Epith Cells Few Urine Bacteria Rare Urine Casts 0-2 Quality VTE Prophylaxis VTE prophylaxis: mechanical ordered
[2024-06-26] MEDS: ONDANSETRON INJ 4 MG/2 ML VIAL IV PUSH (10:37)
--- NOTE | 2024-06-26 12:29 | WPDHPUPDATE1 ---
History and Physical Update Update Date/Time: 06/26/24 12:29 History and Physical has been reviewed, including an updated exam of the patient. There are NO changes in the patient's condition. Risks, benefits, and alternatives have been discussed and questions answered. Patient agrees to proceed with procedure.
[2024-06-26] MEDS: LACTATED RINGERS 1,000 ML 30 ML IV CONT ×2 (13:10→15:14)
--- NOTE | 2024-06-26 13:49 | P.PNAN_ITS ---
Anes - Eval Pre Procedure Procedure: Operation Date: 06/26/24 13:30 Proposed Procedures p Laparoscopic Cholecystectomy with Intraoperative Cholangiogram - Donavan Maki DO Date/Time: 06/26/24 13:49 Pre Op Diagnosis: acute pancreatitis, cholelithiasis, constipation Patient Data Age: 53 Gender: F Height: 1.73 m Weight: 81.6 kg Last Vital Signs Temp 36.9 C 06/26/24 13:20 Pulse 46 L 06/26/24 13:20 Resp 18 06/26/24 06:00 BP 114/58 L 06/26/24 13:20 Pulse Ox 94 06/26/24 13:20 O2 Del Method Room Air 06/26/24 09:10 Allergies Allergy/AdvReac Type Severity Reaction Status Date / Time No Known Allergies Allergy Verified 06/26/24 13:19 Home Medications ?Medication ?Instructions ?Recorded ?Confirmed ?Type buprenorphine 8 mg-naloxone 2 mg 1 film sublingual Q24H 06/25/24 06/25/24 History sublingual film Laboratory Tests 06/25/24 06/25/24 06/26/24 12:32 13:30 04:22 WBC 11.1 H K/mm3 (4.5-10.0) RBC 3.49 L M/mm3 (4.2-5.4) Hgb 10.2 L D g/dL (12.0-15.0) Hct 31.2 L % (37.0-47.0) MCV 89.4 fl (80-100) MCH 29.2 pg (26-34) MCHC 32.7 g/dl (32-36) RDW 12.0 % (11.5-14.5) Plt Count 154 k/mm3 (150-375) MPV 10.7 H fl (7.4-10.4) Immature Gran % (Auto) 1.3 H % (0-0.5) Neut % (Auto) 82.3 H % (45.5-73.1) Lymph % (Auto) 9.1 L % (18.3-44.2) [place] % (Auto) 6.8 % (2.6-8.5) Eos % (Auto) 0.4 % (0-4.4) Baso % (Auto) 0.1 L % (0.2-1.2) Lymph # (Auto) 1.01 K/mm3 (0.9-3.2) [place] # (Auto) 0.8 H K/mm3 (0.1-0.6) Eos # (Auto) 0.0 K/mm3 (0-0.3) Baso # (Auto) 0.0 K/mm3 (0.0-0.1) Abs Immat Gran (auto) 0.14 H K/mm3 (0.00-0.031) Absolute Neuts (auto) 9.2 H K/mm3 (1.3-6.7) Absolute Nucleated RBC 0.000 K/mm3 (0.0-0.012) Nucleated RBC % 0.0 % (0.0-0.2) Sodium 135 L mmol/L (137-145) Potassium 3.2 L mmol/L (3.4-5.0) Chloride 104 mmol/L (98-107) Carbon Dioxide 25 mmol/L (22-30) Anion Gap 6 mmol/L (4-12) BUN 13 mg/dL (7-17) Creatinine 0.60 L mg/dL (0.7-1.0) Estim Creat Clear Calc 93 ml/min Estimated GFR > 60 (59 - ) Glucose 96 mg/dL (65-110) Calcium 7.3 L mg/dL (8.4-10.2) Magnesium 1.9 mg/dL (1.6-2.3) Total Bilirubin 0.5 mg/dL (0.2-1.3) AST 35 U/L (14-36) ALT 92 H U/L (6-35) Alkaline Phosphatase 112 U/L (38-126) Total Protein 6.0 L g/dL (6.3-8.2) Albumin 3.2 L g/dL (3.5-5.1) Triglycerides 129 mg/dL (<150) Lipase 176 U/L (23-300) Urine Color Yellow (Yellow) Urine Appearance Clear (Clear) Urine pH 5.0 (5.0-9.0) Ur Specific [place] > 1.045 H (1.001-1.035) Urine Protein 1+ H mg/dL (Negative) Urine Glucose (UA) Negative mg/dL (Negative) Urine Ketones Negative mg/dL (Negative) Ur Blood (Man) Negative (Negative) Urine Nitrate Negative (Negative) Urine Bilirubin Negative (Negative) Urine Urobilinogen 0.2 mg/dL (<2.0) Add Ur Microanalysis Reviewed Leukocyte Esterase Rfl Negative TE/UL (Negative) Urine RBC 0-2 /hpf (0-2) Urine WBC 0-5 /hpf (0-3) Ur Squamous Epith Cells Few /hpf (Few) Urine Bacteria Rare /hpf Urine Casts 0-2 Patient hx anesthesia problems: none Family hx anesthesia problems: none Results Review: All pre-operative results and documents have been reviewed as part of the pre- operative evaluation. [facility] Past Medical History Medical History (Updated 06/26/24 @ 13:49 by Evette Mauro CRNA) Acute pancreatitis Kidney stones H/O nephrolithotomy with removal of calculi Surgical History Surgical History History of dilation and curettage S/P tubal ligation History of endometrial ablation Delivery by section x2 Family History Family History Grandparent Pancreas cancer Social History Social History Smoking packs per day: 1 Smoking cigarettes per day: 20.0 Years smoked: 40 Smoking pack-years: 40.00 Smoking status: Current every day smoker Tobacco type: cigarettes Alcohol intake: never Substance use: never Substance use type: does not use Do You Feel Safe in your Home?: Yes Lack of Transportation: No Lack of Food: Never True Current Housing: I Have Housing Concerned About Future Housing: No Difficulty Paying Gas/Electric Bills: No Difficulty Paying for Meds: No Currently Unemployed: No Education: Trade/Vocational Certificate Difficulty w/ Childcare or Family Care: No Living arrangements: with family Occupation/Education: occupation 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
[2024-06-26] MEDS: ceFAZolin 2 GM/D5W 50 ML 2 GM/50 ML BAG IVPB (14:02)
[2024-06-26] MEDS: BUPIVACAINE/EPINEPHRINE 0.5% 50 ML VIAL 30 ML INFILTRATE (14:33)
--- NOTE | 2024-06-26 15:18 | W.PM.PROC2 ---
Procedure Note - Detailed Date of Procedure 06/26/24 Pre-op Diagnosis acute pancreatitis, cholelithiasis, constipation Post-op Diagnosis Same Procedure Performed Laparoscopic cholecystectomy with intraoperative cholangiogram Surgeon Donavan Maki DO Anesthesia General and Local (0.5% bupivacaine) Indications This is a 53-year-old woman who presented to the emergency department on 06/25/2024 with epigastric abdominal pain. CT showed evidence of acute pancreatitis and layering sludge or stones within the gallbladder. Her lipase was only mildly elevated. She was admitted for further treatment. Her lipase came down to normal the following day and her pain was improved. Discussions were made with the patient about treatment options and decision was made to proceed with laparoscopic cholecystectomy with intraoperative cholangiogram, possible open. Findings Laparoscopic cholecystectomy with cholangiography was performed. The gallbladder had a few pericholecystic adhesions and appeared slightly dilated with mild chronic wall thickening. There were many small stones within the gallbladder. The cystic duct also appeared slightly dilated. Intraoperative cholangiogram was obtained using Omnipaque contrast and fluoroscopy. There did appear to be a distal common bile duct filling defect and obstruction. No contrast was visualized entering into the duodenum. The images were sent to the radiologist for interpretation. The gallbladder was then removed and sent to the lab for pathology. No other intra-abdominal abnormalities were noted. Description of Procedure Procedure as well as risks, benefits, and alternatives were discussed with patient. Written consent was obtained and placed in chart prior to procedure. The patient was brought back to surgical suite. Patient was placed in supine position on operating table. Time-out was done to confirm patient and procedure. Patient was then intubated by the anesthesia department. Abdomen was prepped and draped in sterile fashion using chlorhexidine prep. 0.5% bupivacaine with epinephrine was infiltrated at each site of incision. A 5 millimeter incision was made near the umbilicus, and a 5 millimeter Optiview trocar was advanced through the abdominal layers under direct visualization. Once inside the abdominal cavity, carbon dioxide was insufflated to create a pneumoperitoneum. The camera was inserted and the abdomen was inspected. No immediate abnormalities were identified. The patient was placed in reverse Trendelenburg position and rotated slightly to the left. An 11 millimeter incision was made in the subxiphoid region, and an 11 millimeter trocar was inserted under direct visualization. Two 5 millimeter incisions were made in the right upper quadrant, and two 5 millimeter trocars were inserted under direct visualization. The gallbladder was identified and grasped at the fundus and retracted superiorly. It was then grasped at the infundibulum retracted laterally. Careful dissection around the neck of the gallbladder was performed using blunt dissection with a [place] grasper and hook electrocautery. The cystic duct was identified, and a window was created behind it. The cystic artery was also identified and a window was created behind it. The critical view of safety was identified, visualizing the cystic duct running directly into the neck of the gallbladder, and the cystic artery running directly into the wall of the gallbladder. A 5 millimeter clip director of laboratory operations was then used to place 2 clips proximally and 1 clip distally on the cystic artery. It was then transected using endoscopic scissors. The [place] clamp was then placed across the neck of the gallbladder and the [place] cholangiocatheter was then advanced into the distal neck of the gallbladder. The catheter aspirated and flushed with saline with ease. The patient was then flattened out in bed and fluoroscopy was used to obtain a cholangiogram by injecting Omnipaque contrast. The images were sent to the radiologist for interpretation. The patient was then placed back in reverse Trendelenburg position. The catheter was removed. A 5 mm Endoclip director of laboratory operations was used to place 2 clips proximally 1 clip distally on the cystic duct. It was then transected using endoscopic scissors. Once safely away from the jaclyn hepatitis, the gallbladder was dissected free from the liver bed using hook electrocautery. Hemostasis was achieved along the way. The gallbladder was removed completely and then removed through the subxiphoid port. The liver bed was then inspected. Hemostasis appeared adequate, and our clips appeared secure. The area was gently irrigated with sterile saline. No other abnormalities were seen. The patient was flattened out in bed, and 1 final inspection was made around the abdominal cavity. The subxiphoid port was removed, and a Prasad Iris cone was used to approximate the fascia with an 0-Vicryl simple interrupted suture. The remaining ports were then removed under direct visualization, the camera was removed, and the pneumoperitoneum was released. The skin of the incisions was approximated using 4-0 Monocryl subcuticular sutures. Exofin glue was applied on top. The patient was then awakened from anesthesia, extubated, and transferred to recovery. Estimated Blood Loss 5 Pathology Yes (Gallbladder) Complications No immediate complications Condition Stable Disposition Floor [facility] Billing Surgery - Charge Forward: Surgery Billing
[2024-06-26] MEDS: fentaNYL CITRATE INJ (*CRX) 100 MCG/2 ML VIAL 25 MCG IV PUSH ×2 (15:37→15:48)
--- NOTE | 2024-06-26 16:29 | PC.NURSE ---
Returned from OR at [id number]. Report received from JYOTHI Robison.
[2024-06-26] MEDS: LACTATED RINGERS 1,000 ML 100 ML IV CONT (16:34)
--- NOTE | 2024-06-26 17:48 | P.CONGI_ITS ---
Assessment and Plan Assessment and plan (1) Choledocholithiasis: Code(s): K80.50 - Calculus of bile duct without cholangitis or cholecystitis without obstruction Status: Acute Assessment and Plan: patient with documented presence of small common bile duct stone during intraoperative cholangiogram. Will plan on ERCP tomorrow afternoon. GI Consult Note Consult date/time: 06/26/24 17:48 HPI: Radha Platt is a 53 year old female Who was admitted on 06/25/2024. He was complaining of several days of severe right upper quadrant pain, and was diagnosed with mild And self-limited acute pancreatitis secondary to gallbladder stones. Today she underwent laparoscopic cholecystectomy with intraoperative cholangiogram showing a stone in the common bile duct. No contrast was reaching the duodenum. Her labs show: Total bilirubin 0.5, AST 35, ALT 92, occult 112, albumin 3.2. she is currently asymptomatic. Review of Systems 2 Review of Systems: All systems reviewed & are unremarkable except as noted in HPI and below PMFSH Past Medical History Medical History (Updated 06/26/24 @ 17:50 by Marcos Higgins MD) Acute pancreatitis Kidney stones H/O nephrolithotomy with removal of calculi Surgical History Surgical History History of dilation and curettage S/P tubal ligation History of endometrial ablation Delivery by section x2 Family History Family History Grandparent Pancreas cancer Social History Social History Smoking packs per day: 1 Smoking cigarettes per day: 20.0 Years smoked: 40 Smoking pack-years: 40.00 Smoking status: Current every day smoker Tobacco type: cigarettes Alcohol intake: never Substance use: never Substance use type: does not use Do You Feel Safe in your Home?: Yes Lack of Transportation: No Lack of Food: Never True Current Housing: I Have Housing Concerned About Future Housing: No Difficulty Paying Gas/Electric Bills: No Difficulty Paying for Meds: No Currently Unemployed: No Education: Trade/Vocational Certificate Difficulty w/ Childcare or Family Care: No Living arrangements: with family Occupation/Education: occupation 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 Gender identity (if verbalized by the patient): Female Sexual Orientation (if Verbalized by the Patient): Straight or Heterosexual Spiritual care concerns: No Meds Home Medications and Allergies Home Medications ?Medication ?Instructions ?Recorded ?Confirmed ?Type buprenorphine 8 mg-naloxone 2 mg 1 film sublingual Q24H 06/25/24 06/25/24 History sublingual film Allergies Allergy/AdvReac Type Severity Reaction Status Date / Time No Known Allergies Allergy Verified 06/26/24 13:19 Vital Signs Vital Signs - 24 hr 06/25/24 18:57 06/25/24 20:05 06/25/24 22:00 Temperature 99.2 F Pulse Rate 69 65 Respiratory Rate 19 18 Blood Pressure 119/59 L 107/47 L Pulse Oximetry 98 95 Oxygen Delivery Room Air Oxygen Flow Rate 06/26/24 06:00 06/26/24 09:10 06/26/24 13:20 Temperature 99.2 F 98.4 F Pulse Rate 60 46 L Respiratory Rate 18 Blood Pressure 93/32 L 114/58 L Pulse Oximetry 97 94 Oxygen Delivery Room Air Oxygen Flow Rate 06/26/24 15:14 06/26/24 15:30 06/26/24 15:45 Temperature 97.0 F L Pulse Rate 60 58 L 53 L Respiratory Rate 16 16 16 Blood Pressure 112/53 L 109/54 L 104/48 L Pulse Oximetry 100 98 96 Oxygen Delivery Simple Face Mask Room Air Room Air Oxygen Flow Rate 8 06/26/24 16:00 06/26/24 16:15 06/26/24 16:30 Temperature 97.2 F L Pulse Rate 56 L 51 L 50 L Respiratory Rate 12 12 16 Blood Pressure 104/50 L 104/49 L 109/57 L Pulse Oximetry 94 95 93 Oxygen Delivery Room Air Room Air Oxygen Flow Rate 06/26/24 16:30 06/26/24 16:51 Temperature 97.2 F L 97.3 F L Pulse Rate 50 L 48 L Respiratory Rate 16 16 Blood Pressure 109/57 L 104/52 L Pulse Oximetry 93 93 Oxygen Delivery Oxygen Flow Rate Exam 2 Const: General: no acute distress and uncomfortable Resp: Effort & Inspection: normal respiratory effort Auscultation: clear to auscultation bilaterally Cardio: Rate: regular rate Rhythm: regular rhythm GI: GI Palp: Yes Soft to palpation (mildly distended. ) Neuro: Speech: normal speech Extrem: General: no pedal edema Psych: Mental Status: mental status grossly normal Affect: normal affect Results Labs 06/26/24 04:22 06/26/24 04:22 Labs: Short CBC 06/26/24 Range/Units 04:22 WBC 11.1 H (4.5-10.0) K/mm3 Hgb 10.2 L D (12.0-15.0) g/dL Hct 31.2 L (37.0-47.0) % Plt Count 154 (150-375) k/mm3 BMP 06/26/24 04:22 Sodium 135 L Potassium 3.2 L Chloride 104 Carbon Dioxide 25 BUN 13 Creatinine 0.60 L Glucose 96 Calcium 7.3 L Liver Function 06/26/24 Range/Units 04:22 Total Bilirubin 0.5 (0.2-1.3) mg/dL AST 35 (14-36) U/L ALT 92 H (6-35) U/L Alkaline Phosphatase 112 (38-126) U/L Albumin 3.2 L (3.5-5.1) g/dL
[2024-06-26] MEDS: SENNA/DOCUSATE SODIUM TABLET 1 TAB PO (20:22)
[2024-06-26] MEDS: HYDROmorphone HCL INJ (*CRX) 2 MG/ML VIAL 1 MG IV PUSH (20:23)
[2024-06-27] VITALS (22 sets, daily range): BP systolic 95–186; BP diastolic 44–101; PULSE 37–82; RESP 15–24; TEMP 36.2–36.9; O2SAT 89–100
[2024-06-27] MEDS: LACTATED RINGERS 1,000 ML 100 ML IV CONT (02:16)
[2024-06-27] MEDS: HYDROmorphone HCL INJ (*CRX) 2 MG/ML VIAL 1 MG IV PUSH ×2 (02:16→06:43)
[2024-06-27 05:22] LABS: Basophils Percent Auto 0.1 % (0.2-1.2); Eosinophils Percent Auto 0.1 % (0-4.4); Hematocrit 33.1 % (37.0-47.0); Hemoglobin 10.6 g/dL (12.0-15.0); Immature Granulocyte Absolute 0.08 K/mm3 (0.00-0.031); Immature Granulocyte Percent A 1.1 % (0-0.5); Lymphocytes Percent Auto 13.4 % (18.3-44.2); Mean Corpuscular Hemoglobin 29.3 pg (26-34); Mean Corpuscular Volume 91.4 fl (80-100); Mean Platelet Volume 11.3 fl (7.4-10.4); Monocytes Absolute Auto 0.4 K/mm3 (0.1-0.6); Monocytes Percent Auto 5.6 % (2.6-8.5); Neutrophils Absolute Auto 5.9 K/mm3 (1.3-6.7); Neutrophils Percent Auto 79.7 % (45.5-73.1); Platelet Count Result 157 k/mm3 (150-375); Red Blood Count 3.62 M/mm3 (4.2-5.4); White Blood Count 7.5 K/mm3 (4.5-10.0)
[2024-06-27 05:36] LABS: Alanine Aminotransferase 119 U/L (6-35); Albumin Level 3.5 g/dL (3.5-5.1); Alkaline Phosphatase 207 U/L (38-126); Anion Gap 7 mmol/L (4-12); Aspartate Amino Transferase 96 U/L (14-36); Bilirubin,Total 0.4 mg/dL (0.2-1.3); Blood Urea Nitrogen 13 mg/dL (7-17); Carbon Dioxide 23 mmol/L (22-30); Chloride 105 mmol/L (98-107); Estimated CRCL calculation 94 ml/min; Estimated Glomerular Filt Rate > 60; Glucose 118 mg/dL (65-110); Potassium 4.2 mmol/L (3.4-5.0); Sodium 135 mmol/L (137-145)
--- NOTE | 2024-06-27 10:28 | WPDANESPN ---
Anes - Prog Note Post-Op Date/Time: 06/27/24 10:28 Cardiovascular status: normal Respiratory status: normal Airway patency: baseline Mental status: baseline Post-Op hydration status: normal Vital Signs: Last Vital Signs Temp 36.9 C 06/27/24 06:05 Pulse 60 06/27/24 06:05 Resp 18 06/27/24 06:05 BP 110/44 L 06/27/24 06:05 Pulse Ox 96 06/27/24 06:05 O2 Del Method Room Air 06/26/24 20:00 O2 Flow Rate 8 06/26/24 15:14 FiO2 21 06/26/24 17:55 Pain Score (VAS): 2 I/O: Intake & Output 06/26/24 06/27/24 06/27/24 23:59 07:59 15:59 Intake Total 240 970 Output Total 2 Balance 240 968 Laboratory Tests 06/27/24 04:55 06/27/24 04:55 06/27/24 04:55 WBC 7.5 RBC 3.62 L Hgb 10.6 L Hct 33.1 L MCV 91.4 MCH 29.3 MCHC 32.0 RDW 12.0 Plt Count 157 MPV 11.3 H Immature Gran % (Auto) 1.1 H Neut % (Auto) 79.7 H Lymph % (Auto) 13.4 L [place] % (Auto) 5.6 Eos % (Auto) 0.1 Baso % (Auto) 0.1 L Lymph # (Auto) 1.00 [place] # (Auto) 0.4 Eos # (Auto) 0.0 Baso # (Auto) 0.0 Abs Immat Gran (auto) 0.08 H Absolute Neuts (auto) 5.9 Absolute Nucleated RBC 0.000 Nucleated RBC % 0.0 Sodium 135 L Potassium 4.2 Chloride 105 Carbon Dioxide 23 Anion Gap 7 BUN 13 Creatinine 0.59 L Estim Creat Clear Calc 94 Estimated GFR > 60 Glucose 118 H Calcium 8.0 L Total Bilirubin 0.4 AST 96 H ALT 119 H Alkaline Phosphatase 207 H Total Protein 6.0 L Albumin 3.5 Post-procedural complaints: none Patient Feedback: Patient satisfied with anesthetic care.
--- NOTE | 2024-06-27 10:57 | P.PNGS_ITS ---
Progress Note: A&P Assessment and Plan (1) Acute pancreatitis: Qualifiers: Acute pancreatitis complication: no infection or necrosis Pancreatitis type: unspecified pancreatitis type Qualified Code(s): K85.90 - Acute pancreatitis without necrosis or infection, unspecified Code(s): K85.90 - Acute pancreatitis without necrosis or infection, unspecified Status: Acute Assessment and Plan: * Acute biliary pancreatitis with choledocholithiasis on IOC. Pancreatitis resolving. ERCP today. * Continue medical management. (2) Cholelithiasis: Qualifiers: Biliary obstruction: without biliary obstruction Cholecystitis presence: without cholecystitis Cholelithiasis location: gallbladder Qualified Code(s): K80.20 - Calculus of gallbladder without cholecystitis without obstruction Code(s): K80.20 - Calculus of gallbladder without cholecystitis without obstruction Status: Acute Assessment and Plan: * Postop day 1 following laparoscopic cholecystectomy. IOC showed distal common bile duct stone. GI has her scheduled for an ERCP today. * Okay to advance diet as tolerated per GI following the ERCP (3) Constipation: Qualifiers: Constipation type: unspecified constipation type Qualified Code(s): K59.00 - Constipation, unspecified Code(s): K59.00 - Constipation, unspecified Status: Acute Plan I have discussed the patient's case and plan of care with Dr. Maki. Subjective Subjective Date/Time Seen: 06/27/24 10:57 Patient reports: no new complaints, feels better, flatus, bowel movement (X1 today) and afebrile Interval history: Patient feeling well this morning. Reports some incisional soreness, but well controlled. She is currently NPO for ERCP, but denies any nausea or vomiting overnight. Exam Const: General: comfortable and no acute distress Orientation/consciousness: patient oriented x3 GI: Inspection: non-distended and incision (Dry and glue intact) GI Palp: Yes Soft to palpation, Yes Tenderness to palpation present (GI) (Minimal expected incisional tenderness), No Guarding due to palpation present (GI) and No Rebound tenderness present Auscultation: normal bowel sounds Objective Data Vital Signs Vital Signs: Vital Signs - 24 hr 06/26/24 13:20 06/26/24 15:14 06/26/24 15:30 Temperature 98.4 F 97.0 F L Pulse Rate 46 L 60 58 L Respiratory Rate 16 16 Blood Pressure 114/58 L 112/53 L 109/54 L Pulse Oximetry 94 100 98 Oxygen Delivery Simple Face Mask Room Air Oxygen Flow Rate 8 Fraction of Inspired Oxygen 06/26/24 15:45 06/26/24 16:00 06/26/24 16:15 Temperature Pulse Rate 53 L 56 L 51 L Respiratory Rate 16 12 12 Blood Pressure 104/48 L 104/50 L 104/49 L Pulse Oximetry 96 94 95 Oxygen Delivery Room Air Room Air Room Air Oxygen Flow Rate Fraction of Inspired Oxygen 06/26/24 16:30 06/26/24 16:30 06/26/24 16:51 Temperature 97.2 F L 97.2 F L 97.3 F L Pulse Rate 50 L 50 L 48 L Respiratory Rate 16 16 16 Blood Pressure 109/57 L 109/57 L 104/52 L Pulse Oximetry 93 93 93 Oxygen Delivery Oxygen Flow Rate Fraction of Inspired Oxygen 06/26/24 17:55 06/26/24 18:47 06/26/24 20:00 Temperature 97.3 F L Pulse Rate 45 L 47 L Respiratory Rate 18 18 Blood Pressure 102/50 L Pulse Oximetry 91 93 Oxygen Delivery Room Air Room Air Oxygen Flow Rate Fraction of Inspired Oxygen 21 06/26/24 22:00 06/26/24 22:05 06/27/24 02:05 Temperature 97.8 F 98.8 F 98.2 F Pulse Rate 60 60 60 Respiratory Rate 18 18 18 Blood Pressure 96/56 L 95/56 L 108/44 L Pulse Oximetry 97 94 93 Oxygen Delivery Oxygen Flow Rate Fraction of Inspired Oxygen 06/27/24 06:00 06/27/24 06:05 Temperature 97.3 F L 98.5 F Pulse Rate 60 60 Respiratory Rate 18 18 Blood Pressure 110/49 L 110/44 L Pulse Oximetry 94 96 Oxygen Delivery Oxygen Flow Rate Fraction of Inspired Oxygen Intake/Output Intake/Output: Intake & Output 06/24/24 06/25/24 06/26/24 06/27/24 23:59 23:59 23:59 23:59 Intake Total 3000 3290 970 Output Total 2 Balance 3000 3290 968 Meds/Results Medications: Active Medications Generic Name Dose Route Start Last Admin Trade Name Freq PRN Reason Stop Dose Admin Acetaminophen 650 mg 06/25/24 16:17 Acetaminophen 325 Mg Tablet PO Q6H PRN Mild Pain (1-3) or Fever Hydrocodone Bitart/Acetaminophen 1 tab 06/26/24 16:20 Hydrocodone/Acetaminophen (*Crx) 5-325 Mg Tablet PO Q4H PRN Pain Rated 4-6 Hydrocodone Bitart/Acetaminophen 1 tab 06/26/24 16:20 Hydrocodone/Acetaminophen (*Crx) 10-325 Mg Tablet PO Q4H PRN Pain Rated 7-10 Calcium Carbonate 200 mg 06/25/24 19:56 Calcium Carbonate (Tums) 500 Mg (200 Mg Elemental) PO Q6H PRN Indigestion Dextrose 12.5 gm 06/25/24 16:14 Dextrose 50% 25 Gm/50 Ml Syringe IV PUSH PRN PRN Hypoglycemia Protocol Diphenhydramine HCl 25 mg 06/26/24 16:20 Diphenhydramine Hcl Inj 50 Mg/Ml Vial IV PUSH Q6H PRN Itching Glucagon 1 mg 06/25/24 16:14 Glucagon For Inj 1 Mg Vial IM PRN PRN Hypoglycemia Protocol Glucose 15 gm 06/25/24 16:14 Glucose Oral Gel 15 Gm Of Glucse In 37.5 Gm Tube PO PRN PRN Hypoglycemia Protocol Hydromorphone HCl 1 mg 06/26/24 16:23 06/27/24 06:43 Hydromorphone Hcl Inj (*Crx) 2 Mg/Ml Vial IV PUSH 1 mg Q2H PRN Administration Breakthrough Pain Rated 7-10 or NPO Hydromorphone HCl 0.5 mg 06/26/24 16:24 Hydromorphone Hcl Inj (*Crx) 2 Mg/Ml Vial IV PUSH Q2H PRN Breakthrough Pain Rated 4-6 or NPO Dextrose 1,000 mls @ 100 mls/hr 06/25/24 16:14 Dextrose 5% 1,000 Ml IVPB PRN PRN Hypoglycemia Protocol Lactated Ringer's 1,000 mls @ 100 mls/hr 06/26/24 16:20 06/27/24 02:16 Lr - Lactated Ringers Iv IV CONT 100 mls/hr .Q10H MERRY Administration Ibuprofen 800 mg in 200 mls @ 400 mls/hr 06/26/24 16:20 Caldolor 800 Mg/200 Ml IVPB Q6H PRN Breakthrough Pain Rated 1-3 or NPO Naloxone HCl 0.1 mg 06/26/24 16:20 Naloxone Hcl 0.4 Mg/Ml Vial IV PUSH Q2M PRN Opiate Reversal Ondansetron HCl 4 mg 06/26/24 16:20 Ondansetron Inj 4 Mg/2 Ml Vial IV PUSH Q4H PRN Nausea And Vomiting Polyethylene Glycol 17 gm 06/26/24 09:00 06/26/24 08:58 Polyethylene Glycol 3350 17 Gm Powd.Pack PO 17 gm QAM MERRY Administration Senna/Docusate Sodium 1 tab 06/25/24 21:00 06/26/24 20:22 Senna/Docusate Sodium Tablet PO 1 tab HS MERRY Administration Radiology Results: ITS Impressions Abdomen/Pelvis CT 06/25/24 13:38 IMPRESSION: Acute pancreatitis with significant fecal stasis, as detailed above. Abdomen Ultrasound 06/25/24 16:13 IMPRESSION: Cholelithiasis, without ultrasound evidence of cholecystitis. Cholangiogram,Operative 06/26/24 16:15 IMPRESSION: 1. Small obstructing stone at the distalmost common bile duct with no contrast extending into the duodenum. Dr. Reynoso discussed these findings with Dr. Zhou at the time of the procedure. Labs Labs: Laboratory Results - last 24 hr 06/27/24 04:55 WBC 7.5 RBC 3.62 L Hgb 10.6 L Hct 33.1 L MCV 91.4 MCH 29.3 MCHC 32.0 RDW 12.0 Plt Count 157 MPV 11.3 H Immature Gran % (Auto) 1.1 H Neut % (Auto) 79.7 H Lymph % (Auto) 13.4 L [place] % (Auto) 5.6 Eos % (Auto) 0.1 Baso % (Auto) 0.1 L Lymph # (Auto) 1.00 [place] # (Auto) 0.4 Eos # (Auto) 0.0 Baso # (Auto) 0.0 Abs Immat Gran (auto) 0.08 H Absolute Neuts (auto) 5.9 Absolute Nucleated RBC 0.000 Nucleated RBC % 0.0 Sodium 135 L Potassium 4.2 Chloride 105 Carbon Dioxide 23 Anion Gap 7 BUN 13 Creatinine 0.59 L Estim Creat Clear Calc 94 Estimated GFR > 60 Glucose 118 H Calcium 8.0 L Total Bilirubin 0.4 AST 96 H ALT 119 H Alkaline Phosphatase 207 H Total Protein 6.0 L Albumin 3.5
--- NOTE | 2024-06-27 11:20 | P.PNIM_ITS ---
Progress Note: A&P Assessment and Plan (1) Acute pancreatitis: Qualifiers: Acute pancreatitis complication: no infection or necrosis Pancreatitis type: unspecified pancreatitis type Qualified Code(s): K85.90 - Acute pancreatitis without necrosis or infection, unspecified Code(s): K85.90 - Acute pancreatitis without necrosis or infection, unspecified Status: Acute Assessment and Plan: * acute, suspected to be secondary to cholelithiasis * IVF: LR @ 100 ml/hr. * trend lipase: 442>176. * AST 55>35, ALT 163>92, Total Bili WNL * triglycerides within normal limits * analgesics and antiemetics prn * CT abd/pelvis: Acute pancreatitis with significant fecal stasis * no ETOH use * general surgery and GI consulted, appreciate recommendations. * NPO. (2) Cholelithiasis: Qualifiers: Biliary obstruction: without biliary obstruction Cholecystitis presence: without cholecystitis Cholelithiasis location: gallbladder Qualified Code(s): K80.20 - Calculus of gallbladder without cholecystitis without obstruction Code(s): K80.20 - Calculus of gallbladder without cholecystitis without obstruction Status: Acute Assessment and Plan: * acute pancreatitis w/mild elevation in LFTs recent concerns for gallbladder etiology. Ultrasound of the right upper quadrant showed cholelithiasis without evidence of cholecystitis * general surgery consulted. NPO for Laparoscopic cholecystectomy with intraoperative cholangiogram done on 06/26/24. * trend LFTs * AST 55>35>96, ALT 163>92>119, Total Bili WNL. Alkaline phosphatase 207. * WBC 14.1>11.1>7.5. * NPO * ERCP today: Selective, deep bile duct cannulation achieved. There was a filling defect in the distal CBD consistent with stone. Sphincterectomy was performed. No immediate bleeding was seen. A stone extraction was performed with a 9-12 mm balloon catheter and the assistance of a 0.035 inch short-wire access for complete clearance of unfragmented stone. (3) Constipation: Qualifiers: Constipation type: unspecified constipation type Qualified Code(s): K59.00 - Constipation, unspecified Code(s): K59.00 - Constipation, unspecified Status: Acute Assessment and Plan: * history of chronic constipation on MiraLax daily however has been out, will restart * soap fred enema, Dulcolax scheduled HS * IV fluids (4) Hypokalemia: Code(s): E87.6 - Hypokalemia Status: Acute Assessment and Plan: * Potassium 4.2, improved. * Trend level. Subjective Date/time seen: 06/27/24 11:20 Interval history: Patient denies pain at present. Denies nausea or vomiting. Family at bedside. NPO for ERCP. Review of Systems Review of Systems: All systems reviewed & are unremarkable except as noted in HPI and below Exam Const: General: comfortable and no acute distress Resp: Effort & Inspection: normal respiratory effort Auscultation: clear to auscultation bilaterally Cardio: Rate: regular rate Rhythm: regular rhythm GI: GI Palp: Yes Soft to palpation Auscultation: normal bowel sounds Other: Incisions glue dry and intact. Neuro: Speech: normal speech Extrem: General: no pedal edema Psych: Mental Status: mental status grossly normal Affect: normal affect Objective Data Vital Signs Vital Signs: Vital Signs - 24 hr 06/26/24 13:20 06/26/24 15:14 06/26/24 15:30 Temperature 98.4 F 97.0 F L Pulse Rate 46 L 60 58 L Respiratory Rate 16 16 Blood Pressure 114/58 L 112/53 L 109/54 L Pulse Oximetry 94 100 98 Oxygen Delivery Simple Face Mask Room Air Oxygen Flow Rate 8 Fraction of Inspired Oxygen 06/26/24 15:45 06/26/24 16:00 06/26/24 16:15 Temperature Pulse Rate 53 L 56 L 51 L Respiratory Rate 16 12 12 Blood Pressure 104/48 L 104/50 L 104/49 L Pulse Oximetry 96 94 95 Oxygen Delivery Room Air Room Air Room Air Oxygen Flow Rate Fraction of Inspired Oxygen 06/26/24 16:30 06/26/24 16:30 06/26/24 16:51 Temperature 97.2 F L 97.2 F L 97.3 F L Pulse Rate 50 L 50 L 48 L Respiratory Rate 16 16 16 Blood Pressure 109/57 L 109/57 L 104/52 L Pulse Oximetry 93 93 93 Oxygen Delivery Oxygen Flow Rate Fraction of Inspired Oxygen 06/26/24 17:55 06/26/24 18:47 06/26/24 20:00 Temperature 97.3 F L Pulse Rate 45 L 47 L Respiratory Rate 18 18 Blood Pressure 102/50 L Pulse Oximetry 91 93 Oxygen Delivery Room Air Room Air Oxygen Flow Rate Fraction of Inspired Oxygen 06/26/24 22:00 06/26/24 22:05 06/27/24 02:05 Temperature 97.8 F 98.8 F 98.2 F Pulse Rate 60 60 60 Respiratory Rate 18 18 18 Blood Pressure 96/56 L 95/56 L 108/44 L Pulse Oximetry 97 94 93 Oxygen Delivery Oxygen Flow Rate Fraction of Inspired Oxygen 06/27/24 06:00 06/27/24 06:05 06/27/24 08:00 Temperature 97.3 F L 98.5 F Pulse Rate 60 60 Respiratory Rate 18 18 Blood Pressure 110/49 L 110/44 L Pulse Oximetry 94 96 Oxygen Delivery Room Air Oxygen Flow Rate Fraction of Inspired Oxygen Intake/Output Intake/Output: Intake & Output 06/24/24 06/25/24 06/26/24 06/27/24 23:59 23:59 23:59 23:59 Intake Total 3000 3290 970 Output Total 2 Balance 3000 3290 968 Meds/Results Medications: Active Medications Generic Name Dose Route Start Last Admin Trade Name Freq PRN Reason Stop Dose Admin Acetaminophen 650 mg 06/25/24 16:17 Acetaminophen 325 Mg Tablet PO Q6H PRN Mild Pain (1-3) or Fever Hydrocodone Bitart/Acetaminophen 1 tab 06/26/24 16:20 Hydrocodone/Acetaminophen (*Crx) 5-325 Mg Tablet PO Q4H PRN Pain Rated 4-6 Hydrocodone Bitart/Acetaminophen 1 tab 06/26/24 16:20 Hydrocodone/Acetaminophen (*Crx) 10-325 Mg Tablet PO Q4H PRN Pain Rated 7-10 Calcium Carbonate 200 mg 06/25/24 19:56 Calcium Carbonate (Tums) 500 Mg (200 Mg Elemental) PO Q6H PRN Indigestion Dextrose 12.5 gm 06/25/24 16:14 Dextrose 50% 25 Gm/50 Ml Syringe IV PUSH PRN PRN Hypoglycemia Protocol Diphenhydramine HCl 25 mg 06/26/24 16:20 Diphenhydramine Hcl Inj 50 Mg/Ml Vial IV PUSH Q6H PRN Itching Glucagon 1 mg 06/25/24 16:14 Glucagon For Inj 1 Mg Vial IM PRN PRN Hypoglycemia Protocol Glucose 15 gm 06/25/24 16:14 Glucose Oral Gel 15 Gm Of Glucse In 37.5 Gm Tube PO PRN PRN Hypoglycemia Protocol Hydromorphone HCl 1 mg 06/26/24 16:23 06/27/24 06:43 Hydromorphone Hcl Inj (*Crx) 2 Mg/Ml Vial IV PUSH 1 mg Q2H PRN Administration Breakthrough Pain Rated 7-10 or NPO Hydromorphone HCl 0.5 mg 06/26/24 16:24 Hydromorphone Hcl Inj (*Crx) 2 Mg/Ml Vial IV PUSH Q2H PRN Breakthrough Pain Rated 4-6 or NPO Dextrose 1,000 mls @ 100 mls/hr 06/25/24 16:14 Dextrose 5% 1,000 Ml IVPB PRN PRN Hypoglycemia Protocol Lactated Ringer's 1,000 mls @ 100 mls/hr 06/26/24 16:20 06/27/24 02:16 Lr - Lactated Ringers Iv IV CONT 100 mls/hr .Q10H MRERY Administration Ibuprofen 800 mg in 200 mls @ 400 mls/hr 06/26/24 16:20 Caldolor 800 Mg/200 Ml IVPB Q6H PRN Breakthrough Pain Rated 1-3 or NPO Naloxone HCl 0.1 mg 06/26/24 16:20 Naloxone Hcl 0.4 Mg/Ml Vial IV PUSH Q2M PRN Opiate Reversal Ondansetron HCl 4 mg 06/26/24 16:20 Ondansetron Inj 4 Mg/2 Ml Vial IV PUSH Q4H PRN Nausea And Vomiting Polyethylene Glycol 17 gm 06/26/24 09:00 06/26/24 08:58 Polyethylene Glycol 3350 17 Gm Powd.Pack PO 17 gm QAM MERRY Administration Senna/Docusate Sodium 1 tab 06/25/24 21:00 06/26/24 20:22 Senna/Docusate Sodium Tablet PO 1 tab HS MERRY Administration Radiology Results: ITS Impressions Abdomen/Pelvis CT 06/25/24 13:38 IMPRESSION: Acute pancreatitis with significant fecal stasis, as detailed above. Abdomen Ultrasound 06/25/24 16:13 IMPRESSION: Cholelithiasis, without ultrasound evidence of cholecystitis. Cholangiogram,Operative 06/26/24 16:15 IMPRESSION: 1. Small obstructing stone at the distalmost common bile duct with no contrast extending into the duodenum. Dr. Reynoso discussed these findings with Dr. Zhou at the time of the procedure. Labs Labs: Laboratory Results - last 24 hr 06/27/24 04:55 WBC 7.5 RBC 3.62 L Hgb 10.6 L Hct 33.1 L MCV 91.4 MCH 29.3 MCHC 32.0 RDW 12.0 Plt Count 157 MPV 11.3 H Immature Gran % (Auto) 1.1 H Neut % (Auto) 79.7 H Lymph % (Auto) 13.4 L [place] % (Auto) 5.6 Eos % (Auto) 0.1 Baso % (Auto) 0.1 L Lymph # (Auto) 1.00 [place] # (Auto) 0.4 Eos # (Auto) 0.0 Baso # (Auto) 0.0 Abs Immat Gran (auto) 0.08 H Absolute Neuts (auto) 5.9 Absolute Nucleated RBC 0.000 Nucleated RBC % 0.0 Sodium 135 L Potassium 4.2 Chloride 105 Carbon Dioxide 23 Anion Gap 7 BUN 13 Creatinine 0.59 L Estim Creat Clear Calc 94 Estimated GFR > 60 Glucose 118 H Calcium 8.0 L Total Bilirubin 0.4 AST 96 H ALT 119 H Alkaline Phosphatase 207 H Total Protein 6.0 L Albumin 3.5 Quality VTE Prophylaxis VTE prophylaxis: mechanical ordered
--- NOTE | 2024-06-27 12:37 | PC.NURSE ---
To GI Lab at 1237, IV 20 L Hand. Report given to JYOTHI Reid.
--- NOTE | 2024-06-27 12:55 | SUR.PREOP ---
Pt has permanent bracelet on right wrist. Offered for her to sign a waiver. Pt stated she would like it off and proceeded to break bracelet off wrist and asked for it to be thrown away.
[2024-06-27] MEDS: LACTATED RINGERS 1,000 ML 150 ML IV CONT ×2 (13:00→14:36)
[2024-06-27] MEDS: INDOMETHACIN 50 MG SUPP.RECT 100 MG RECTAL (13:01)
--- NOTE | 2024-06-27 13:19 | P.PNAN_ITS ---
Anes - Initial Pre Proc Eval Procedure: Operation Date: 06/26/24 13:30 Proposed Procedures p Laparoscopic Cholecystectomy with Intraoperative Cholangiogram - Donavan Maki DO Operation Date: 06/27/24 13:30 Proposed Procedures p Endoscopic Retro Cholangiopancreatogram - Marcos Higgins MD Date/Time: 06/27/24 13:19 Surgeon: Jamarcus David MD Pre Op Diagnosis: acute pancreatitis, cholelithiasis, constipation Patient Data Age: 53 Gender: F Height: 1.73 m Weight: 81.6 kg Last Vital Signs Temp 97.2 F L 06/27/24 12:54 Pulse 82 06/27/24 12:54 Resp 20 06/27/24 12:54 BP 114/44 L 06/27/24 12:54 Pulse Ox 98 06/27/24 12:54 O2 Del Method Room Air 06/27/24 12:54 O2 Flow Rate 8 06/26/24 15:14 FiO2 21 06/26/24 17:55 Allergies Allergy/AdvReac Type Severity Reaction Status Date / Time No Known Allergies Allergy Verified 06/27/24 12:52 Home Medications ?Medication ?Instructions ?Recorded ?Confirmed ?Type buprenorphine 8 mg-naloxone 2 mg 1 film sublingual Q24H 06/25/24 06/25/24 History sublingual film Laboratory Tests 06/27/24 04:55 WBC 7.5 K/mm3 (4.5-10.0) RBC 3.62 L M/mm3 (4.2-5.4) Hgb 10.6 L g/dL (12.0-15.0) Hct 33.1 L % (37.0-47.0) MCV 91.4 fl (80-100) MCH 29.3 pg (26-34) MCHC 32.0 g/dl (32-36) RDW 12.0 % (11.5-14.5) Plt Count 157 k/mm3 (150-375) MPV 11.3 H fl (7.4-10.4) Immature Gran % (Auto) 1.1 H % (0-0.5) Neut % (Auto) 79.7 H % (45.5-73.1) Lymph % (Auto) 13.4 L % (18.3-44.2) [place] % (Auto) 5.6 % (2.6-8.5) Eos % (Auto) 0.1 % (0-4.4) Baso % (Auto) 0.1 L % (0.2-1.2) Lymph # (Auto) 1.00 K/mm3 (0.9-3.2) [place] # (Auto) 0.4 K/mm3 (0.1-0.6) Eos # (Auto) 0.0 K/mm3 (0-0.3) Baso # (Auto) 0.0 K/mm3 (0.0-0.1) Abs Immat Gran (auto) 0.08 H K/mm3 (0.00-0.031) Absolute Neuts (auto) 5.9 K/mm3 (1.3-6.7) Absolute Nucleated RBC 0.000 K/mm3 (0.0-0.012) Nucleated RBC % 0.0 % (0.0-0.2) Sodium 135 L mmol/L (137-145) Potassium 4.2 mmol/L (3.4-5.0) Chloride 105 mmol/L (98-107) Carbon Dioxide 23 mmol/L (22-30) Anion Gap 7 mmol/L (4-12) BUN 13 mg/dL (7-17) Creatinine 0.59 L mg/dL (0.7-1.0) Estim Creat Clear Calc 94 ml/min Estimated GFR > 60 (59 - ) Glucose 118 H mg/dL (65-110) Calcium 8.0 L mg/dL (8.4-10.2) Total Bilirubin 0.4 mg/dL (0.2-1.3) AST 96 H U/L (14-36) ALT 119 H U/L (6-35) Alkaline Phosphatase 207 H U/L (38-126) Total Protein 6.0 L g/dL (6.3-8.2) Albumin 3.5 g/dL (3.5-5.1) Patient hx anesthesia problems: none Family hx anesthesia problems: none Results Review: All pre-operative results and documents have been reviewed as part of the pre- operative evaluation. [facility] Past Medical History Medical History (Updated 06/26/24 @ 17:50 by Marcos Higgins MD) Acute pancreatitis Kidney stones H/O nephrolithotomy with removal of calculi Surgical History Surgical History History of dilation and curettage S/P tubal ligation History of endometrial ablation Delivery by section x2 Family History Family History Grandparent Pancreas cancer Social History Social History Smoking packs per day: 1 Smoking cigarettes per day: 20.0 Years smoked: 40 Smoking pack-years: 40.00 Smoking status: Current every day smoker Tobacco type: cigarettes Alcohol intake: never Substance use: never Substance use type: does not use Do You Feel Safe in your Home?: Yes Lack of Transportation: No Lack of Food: Never True Current Housing: I Have Housing Concerned About Future Housing: No Difficulty Paying Gas/Electric Bills: No Difficulty Paying for Meds: No Currently Unemployed: No Education: Trade/Vocational Certificate Difficulty w/ Childcare or Family Care: No Living arrangements: with family Occupation/Education: occupation Additional occupation/education comments: [email or web address] Gender identity (if verbalized by the patient): Female Sexual Orientation (if Verbalized by the Patient): Straight or Heterosexual Spiritual care concerns: No Anes - Eval Final PreProcedure Day of Procedure 06/27/24 13:19 Patient weight: normal Heart: regular rate and rhythm Lungs: clear to auscultation Airway: Mallampati scale class II Neurological: alert and oriented Last oral intake: >/= 8 hours ASA classification: II Emergent: no Anesthetic plan: proceed Anesthesia type and monitoring: general ETT and standard monitoring Results Review: All pre-operative results and documents have been reviewed as part of the pre- operative evaluation. Informed Consent: The patient's anesthetic plan and its attendant risks and benefits were discussed with the patient/family/POA. Questions were solicited and answers provided to the satisfaction of the patient/family/POA.
--- NOTE | 2024-06-27 14:57 | P.PNGI_ITS ---
Progress Note: A&P Assessment and Plan (1) Choledocholithiasis: Code(s): K80.50 - Calculus of bile duct without cholangitis or cholecystitis without obstruction Status: Acute Assessment and Plan: See ERCP report. Retained stone extracted without difficulty. Patient should resume diet, and, if stable, and if surgery okay, can be discharged tomorrow. Subjective Date/time seen: 06/27/24 14:57 Objective Data Vital Signs Vital Signs: Vital Signs - 24 hr 06/26/24 15:14 06/26/24 15:30 06/26/24 15:45 Temperature 97.0 F L Pulse Rate 60 58 L 53 L Respiratory Rate 16 16 16 Blood Pressure 112/53 L 109/54 L 104/48 L Pulse Oximetry 100 98 96 Oxygen Delivery Simple Face Mask Room Air Room Air Oxygen Flow Rate 8 Fraction of Inspired Oxygen 06/26/24 16:00 06/26/24 16:15 06/26/24 16:30 Temperature 97.2 F L Pulse Rate 56 L 51 L 50 L Respiratory Rate 12 12 16 Blood Pressure 104/50 L 104/49 L 109/57 L Pulse Oximetry 94 95 93 Oxygen Delivery Room Air Room Air Oxygen Flow Rate Fraction of Inspired Oxygen 06/26/24 16:30 06/26/24 16:51 06/26/24 17:55 Temperature 97.2 F L 97.3 F L Pulse Rate 50 L 48 L 45 L Respiratory Rate 16 16 18 Blood Pressure 109/57 L 104/52 L Pulse Oximetry 93 93 91 Oxygen Delivery Room Air Oxygen Flow Rate Fraction of Inspired Oxygen 21 06/26/24 18:47 06/26/24 20:00 06/26/24 22:00 Temperature 97.3 F L 97.8 F Pulse Rate 47 L 60 Respiratory Rate 18 18 Blood Pressure 102/50 L 96/56 L Pulse Oximetry 93 97 Oxygen Delivery Room Air Oxygen Flow Rate Fraction of Inspired Oxygen 06/26/24 22:05 06/27/24 02:05 06/27/24 06:00 Temperature 98.8 F 98.2 F 97.3 F L Pulse Rate 60 60 60 Respiratory Rate 18 18 18 Blood Pressure 95/56 L 108/44 L 110/49 L Pulse Oximetry 94 93 94 Oxygen Delivery Oxygen Flow Rate Fraction of Inspired Oxygen 06/27/24 06:05 06/27/24 08:00 06/27/24 12:54 Temperature 98.5 F 97.2 F L Pulse Rate 60 82 Respiratory Rate 18 20 Blood Pressure 110/44 L 114/44 L Pulse Oximetry 96 98 Oxygen Delivery Room Air Room Air Oxygen Flow Rate Fraction of Inspired Oxygen Intake/Output Intake/Output: Intake & Output 06/24/24 06/25/24 06/26/24 06/27/24 23:59 23:59 23:59 23:59 Intake Total 3000 3290 1015 Output Total 2 Balance 3000 3290 1013 Meds/Results Medications: Active Medications Generic Name Dose Route Start Last Admin Trade Name Freq PRN Reason Stop Dose Admin Acetaminophen 650 mg 06/25/24 16:17 Acetaminophen 325 Mg Tablet PO Q6H PRN Mild Pain (1-3) or Fever Hydrocodone Bitart/Acetaminophen 1 tab 06/26/24 16:20 Hydrocodone/Acetaminophen (*Crx) 5-325 Mg Tablet PO Q4H PRN Pain Rated 4-6 Hydrocodone Bitart/Acetaminophen 1 tab 06/26/24 16:20 Hydrocodone/Acetaminophen (*Crx) 10-325 Mg Tablet PO Q4H PRN Pain Rated 7-10 Calcium Carbonate 200 mg 06/25/24 19:56 Calcium Carbonate (Tums) 500 Mg (200 Mg Elemental) PO Q6H PRN Indigestion Dextrose 12.5 gm 06/25/24 16:14 Dextrose 50% 25 Gm/50 Ml Syringe IV PUSH PRN PRN Hypoglycemia Protocol Diphenhydramine HCl 25 mg 06/26/24 16:20 Diphenhydramine Hcl Inj 50 Mg/Ml Vial IV PUSH Q6H PRN Itching Glucagon 1 mg 06/25/24 16:14 Glucagon For Inj 1 Mg Vial IM PRN PRN Hypoglycemia Protocol Glucose 15 gm 06/25/24 16:14 Glucose Oral Gel 15 Gm Of Glucse In 37.5 Gm Tube PO PRN PRN Hypoglycemia Protocol Hydromorphone HCl 1 mg 06/26/24 16:23 06/27/24 06:43 Hydromorphone Hcl Inj (*Crx) 2 Mg/Ml Vial IV PUSH 1 mg Q2H PRN Administration Breakthrough Pain Rated 7-10 or NPO Hydromorphone HCl 0.5 mg 06/26/24 16:24 Hydromorphone Hcl Inj (*Crx) 2 Mg/Ml Vial IV PUSH Q2H PRN Breakthrough Pain Rated 4-6 or NPO Dextrose 1,000 mls @ 100 mls/hr 06/25/24 16:14 Dextrose 5% 1,000 Ml IVPB PRN PRN Hypoglycemia Protocol Lactated Ringer's 1,000 mls @ 100 mls/hr 06/26/24 16:20 06/27/24 02:16 Lr - Lactated Ringers Iv IV CONT 100 mls/hr .Q10H MERRY Administration Ibuprofen 800 mg in 200 mls @ 400 mls/hr 06/26/24 16:20 Caldolor 800 Mg/200 Ml IVPB Q6H PRN Breakthrough Pain Rated 1-3 or NPO Lactated Ringer's 1,000 mls @ 150 mls/hr 06/27/24 12:55 06/27/24 14:54 Lr - Lactated Ringers Iv IV CONT 150 mls/hr .Q6H40M MERRY Infusion Naloxone HCl 0.1 mg 06/26/24 16:20 Naloxone Hcl 0.4 Mg/Ml Vial IV PUSH Q2M PRN Opiate Reversal Ondansetron HCl 4 mg 06/26/24 16:20 Ondansetron Inj 4 Mg/2 Ml Vial IV PUSH Q4H PRN Nausea And Vomiting Polyethylene Glycol 17 gm 06/26/24 09:00 06/26/24 08:58 Polyethylene Glycol 3350 17 Gm Powd.Pack PO 17 gm QAM MERRY Administration Senna/Docusate Sodium 1 tab 06/25/24 21:00 06/26/24 20:22 Senna/Docusate Sodium Tablet PO 1 tab HS MERRY Administration Radiology Results: ITS Impressions Abdomen/Pelvis CT 06/25/24 13:38 IMPRESSION: Acute pancreatitis with significant fecal stasis, as detailed above. Abdomen Ultrasound 06/25/24 16:13 IMPRESSION: Cholelithiasis, without ultrasound evidence of cholecystitis. Cholangiogram,Operative 06/26/24 16:15 IMPRESSION: 1. Small obstructing stone at the distalmost common bile duct with no contrast extending into the duodenum. Dr. Reynoso discussed these findings with Dr. Zhou at the time of the procedure. Labs Labs: Laboratory Results - last 24 hr 06/27/24 04:55 WBC 7.5 RBC 3.62 L Hgb 10.6 L Hct 33.1 L MCV 91.4 MCH 29.3 MCHC 32.0 RDW 12.0 Plt Count 157 MPV 11.3 H Immature Gran % (Auto) 1.1 H Neut % (Auto) 79.7 H Lymph % (Auto) 13.4 L [place] % (Auto) 5.6 Eos % (Auto) 0.1 Baso % (Auto) 0.1 L Lymph # (Auto) 1.00 [place] # (Auto) 0.4 Eos # (Auto) 0.0 Baso # (Auto) 0.0 Abs Immat Gran (auto) 0.08 H Absolute Neuts (auto) 5.9 Absolute Nucleated RBC 0.000 Nucleated RBC % 0.0 Sodium 135 L Potassium 4.2 Chloride 105 Carbon Dioxide 23 Anion Gap 7 BUN 13 Creatinine 0.59 L Estim Creat Clear Calc 94 Estimated GFR > 60 Glucose 118 H Calcium 8.0 L Total Bilirubin 0.4 AST 96 H ALT 119 H Alkaline Phosphatase 207 H Total Protein 6.0 L Albumin 3.5
[2024-06-27] MEDS: SIMETHICONE ORAL SUSPENSION 20 MG/0.3 ML 30 ML BOTTLE 0.6 ML PO (14:58)
[2024-06-27] MEDS: ALBUTEROL SULFATE NEB 2.5 MG/3 ML INH 1.25 MG INHALATION (16:05)
--- NOTE | 2024-06-27 16:58 | SUR.PHASEII ---
At around 1530 it was seen that patient O2 saturation started to decrease slowly. 2L of oxygen was put on patient which only kept her at 90%. Dr. Moya was called and informed of the status change as well as Dr. Higgins had been in checking on the patient . Also reported patient had started wheezing and having a harder time taking a deep breath. Dr. Moya requested an order for an albuterol nebulizer. That was placed and given. Called Dr. Moya called again as the nebulizer was being given and reported an increase in wheezing and effort to get her breath. Dr. Moya then requested the order for a stat chest xray. Once that was done Dr. Moya came over and spoke with the patient. Report did show pulmonary edema. There was discussion with Roseanna LAUREANO hospitalist and Michelle An about the patient going back to [address] [place] [address] and possibly needing a tele monitor and still requiring oxygen. Roseanna kapoorayed patient going back to [address] [place] [address] with tele monitoring. Zora muro RN also updated.
[2024-06-27] MEDS: FUROSEMIDE INJ 40 MG/4 ML VIAL 20 MG IV PUSH (17:06)
[2024-06-27] MEDS: SENNA/DOCUSATE SODIUM TABLET 1 TAB PO (20:38)
[2024-06-28] VITALS (9 sets, daily range): BP systolic 95–102; BP diastolic 40–58; PULSE 42–63; RESP 17–20; TEMP 37–37.4; O2SAT 92–93
[2024-06-28 05:11] LABS: Basophils Percent Auto 0.1 % (0.2-1.2); Eosinophils Percent Auto 0.4 % (0-4.4); Hematocrit 31.3 % (37.0-47.0); Hemoglobin 10.3 g/dL (12.0-15.0); Immature Granulocyte Absolute 0.08 K/mm3 (0.00-0.031); Lymphocytes Percent Auto 16.1 % (18.3-44.2); Mean Corpuscular HGB Conc 32.9 g/dl (32-36); Mean Corpuscular Hemoglobin 29.1 pg (26-34); Mean Corpuscular Volume 88.4 fl (80-100); Mean Platelet Volume 10.4 fl (7.4-10.4); Monocytes Absolute Auto 0.7 K/mm3 (0.1-0.6); Monocytes Percent Auto 8.8 % (2.6-8.5); Neutrophils Percent Auto 73.6 % (45.5-73.1); Platelet Count Result 211 k/mm3 (150-375); Red Blood Count 3.54 M/mm3 (4.2-5.4); White Blood Count 8.1 K/mm3 (4.5-10.0)
[2024-06-28 05:26] LABS: Alanine Aminotransferase 84 U/L (6-35); Alkaline Phosphatase 183 U/L (38-126); Anion Gap 3 mmol/L (4-12); Aspartate Amino Transferase 47 U/L (14-36); Bilirubin,Total 0.3 mg/dL (0.2-1.3); Blood Urea Nitrogen 18 mg/dL (7-17); Calcium 7.9 mg/dL (8.4-10.2); Carbon Dioxide 31 mmol/L (22-30); Chloride 102 mmol/L (98-107); Estimated CRCL calculation 82 ml/min; Estimated Glomerular Filt Rate > 60; Glucose 96 mg/dL (65-110); Potassium 3.4 mmol/L (3.4-5.0); Sodium 136 mmol/L (137-145)
[2024-06-28 05:30] LABS: NT Pro B Type Natriuretic Pept 3060 pg/mL (19.9-100)
--- NOTE | 2024-06-28 07:13 | P.PNGI_ITS ---
Progress Note: A&P Assessment and Plan (1) Choledocholithiasis: Code(s): K80.50 - Calculus of bile duct without cholangitis or cholecystitis without obstruction Status: Acute Assessment and Plan: the patient's biochemistry continues to improve and patient is currently asymptomatic except for minor surgery related discomfort in the abdominal wall. ERCP and stone extraction successful yesterday.She had evidence of fluid overload yesterday, clinically and radiographically but responded to diuresis. She can be discharged with follow-up with surgery. Subjective Date/time seen: 06/28/24 07:13 Objective Data Vital Signs Vital Signs: Vital Signs - 24 hr 06/27/24 08:00 06/27/24 12:54 06/27/24 14:54 Temperature 97.2 F L Pulse Rate 82 48 L Respiratory Rate 20 20 Blood Pressure 114/44 L 154/86 H Pulse Oximetry 98 99 Oxygen Delivery Room Air Room Air Simple Face Mask Oxygen Flow Rate 6 06/27/24 15:04 06/27/24 15:14 06/27/24 15:24 Temperature Pulse Rate 57 L 62 65 Respiratory Rate 15 15 20 Blood Pressure 172/97 H 186/99 H 153/81 H Pulse Oximetry 100 94 94 Oxygen Delivery Simple Face Mask Room Air Room Air Oxygen Flow Rate 4 06/27/24 15:34 06/27/24 15:44 06/27/24 15:54 Temperature Pulse Rate 62 59 L 56 L Respiratory Rate 20 20 20 Blood Pressure 145/96 H 160/72 H 145/101 H Pulse Oximetry 90 90 89 L Oxygen Delivery Room Air Nasal Cannula Nasal Cannula Oxygen Flow Rate 2 2 06/27/24 16:04 06/27/24 16:05 06/27/24 16:14 Temperature Pulse Rate 58 L 54 L 53 L Respiratory Rate 24 H 24 H 24 H Blood Pressure 167/86 H 150/83 H Pulse Oximetry 100 97 Oxygen Delivery Simple Face Mask Nasal Cannula Oxygen Flow Rate 8 4 06/27/24 16:24 06/27/24 16:45 06/27/24 17:00 Temperature 97.1 F L Pulse Rate 53 L 51 L 46 L Respiratory Rate 24 H 21 H 20 Blood Pressure 135/69 159/91 H 136/65 Pulse Oximetry 93 94 95 Oxygen Delivery Nasal Cannula Nasal Cannula Oxygen Flow Rate 4 4 06/27/24 17:15 06/27/24 17:45 06/27/24 18:43 Temperature 97.3 F L 97.5 F L 97.4 F L Pulse Rate 43 L 47 L 40 L Respiratory Rate 24 H 20 18 Blood Pressure 130/57 L 106/53 L 104/58 L Pulse Oximetry 95 96 99 Oxygen Delivery Oxygen Flow Rate 06/27/24 20:00 06/27/24 20:00 06/27/24 22:00 Temperature 97.7 F Pulse Rate 37 L 60 Respiratory Rate 18 Blood Pressure 95/55 L Pulse Oximetry 95 Oxygen Delivery Room Air Oxygen Flow Rate 06/28/24 00:00 06/28/24 04:00 06/28/24 06:00 Temperature 99.3 F Pulse Rate 42 L 49 L 60 Respiratory Rate 18 Blood Pressure 95/40 L Pulse Oximetry 92 Oxygen Delivery Oxygen Flow Rate Intake/Output Intake/Output: Intake & Output 06/25/24 06/26/24 06/27/24 06/28/24 23:59 23:59 23:59 23:59 Intake Total 3000 3290 1695 Output Total 2 Balance 3000 3290 1693 Meds/Results Medications: Active Medications Generic Name Dose Route Start Last Admin Trade Name Freq PRN Reason Stop Dose Admin Acetaminophen 650 mg 06/25/24 16:17 Acetaminophen 325 Mg Tablet PO Q6H PRN Mild Pain (1-3) or Fever Hydrocodone Bitart/Acetaminophen 1 tab 06/26/24 16:20 Hydrocodone/Acetaminophen (*Crx) 5-325 Mg Tablet PO Q4H PRN Pain Rated 4-6 Hydrocodone Bitart/Acetaminophen 1 tab 06/26/24 16:20 Hydrocodone/Acetaminophen (*Crx) 10-325 Mg Tablet PO Q4H PRN Pain Rated 7-10 Calcium Carbonate 200 mg 06/25/24 19:56 Calcium Carbonate (Tums) 500 Mg (200 Mg Elemental) PO Q6H PRN Indigestion Dextrose 12.5 gm 06/25/24 16:14 Dextrose 50% 25 Gm/50 Ml Syringe IV PUSH PRN PRN Hypoglycemia Protocol Diphenhydramine HCl 25 mg 06/26/24 16:20 Diphenhydramine Hcl Inj 50 Mg/Ml Vial IV PUSH Q6H PRN Itching Glucagon 1 mg 06/25/24 16:14 Glucagon For Inj 1 Mg Vial IM PRN PRN Hypoglycemia Protocol Glucose 15 gm 06/25/24 16:14 Glucose Oral Gel 15 Gm Of Glucse In 37.5 Gm Tube PO PRN PRN Hypoglycemia Protocol Hydromorphone HCl 1 mg 06/26/24 16:23 06/27/24 06:43 Hydromorphone Hcl Inj (*Crx) 2 Mg/Ml Vial IV PUSH 1 mg Q2H PRN Administration Breakthrough Pain Rated 7-10 or NPO Hydromorphone HCl 0.5 mg 06/26/24 16:24 Hydromorphone Hcl Inj (*Crx) 2 Mg/Ml Vial IV PUSH Q2H PRN Breakthrough Pain Rated 4-6 or NPO Dextrose 1,000 mls @ 100 mls/hr 06/25/24 16:14 Dextrose 5% 1,000 Ml IVPB PRN PRN Hypoglycemia Protocol Ibuprofen 800 mg in 200 mls @ 400 mls/hr 06/26/24 16:20 Caldolor 800 Mg/200 Ml IVPB Q6H PRN Breakthrough Pain Rated 1-3 or NPO Naloxone HCl 0.1 mg 06/26/24 16:20 Naloxone Hcl 0.4 Mg/Ml Vial IV PUSH Q2M PRN Opiate Reversal Ondansetron HCl 4 mg 06/26/24 16:20 Ondansetron Inj 4 Mg/2 Ml Vial IV PUSH Q4H PRN Nausea And Vomiting Polyethylene Glycol 17 gm 06/26/24 09:00 06/27/24 17:05 Polyethylene Glycol 3350 17 Gm Powd.Pack PO Not Given QAM MERRY Senna/Docusate Sodium 1 tab 06/25/24 21:00 06/27/24 20:38 Senna/Docusate Sodium Tablet PO 1 tab HS MERRY Administration Simethicone 0.6 ml 06/27/24 14:57 06/27/24 14:58 Simethicone Oral Suspension 20 Mg/0.3 Ml 30 Ml Bottle PO 0.6 ml ONCE PRN Administration Gas Discomfort Radiology Results: ITS Impressions Abdomen/Pelvis CT 06/25/24 13:38 IMPRESSION: Acute pancreatitis with significant fecal stasis, as detailed above. Abdomen Ultrasound 06/25/24 16:13 IMPRESSION: Cholelithiasis, without ultrasound evidence of cholecystitis. Cholangiogram,Operative 06/26/24 16:15 IMPRESSION: 1. Small obstructing stone at the distalmost common bile duct with no contrast extending into the duodenum. Dr. Reynoso discussed these findings with Dr. Zhou at the time of the procedure. Chest X-Ray 06/27/24 16:19 IMPRESSION: 1. New perihilar and lower lung predominant interstitial pulmonary edema. 2. Increasing small left pleural effusion with associated left basilar atelectasis and/or pneumonia. Labs Labs: Laboratory Results - last 24 hr 06/28/24 05:03 WBC 8.1 RBC 3.54 L Hgb 10.3 L Hct 31.3 L MCV 88.4 MCH 29.1 MCHC 32.9 RDW 12.0 Plt Count 211 MPV 10.4 Immature Gran % (Auto) 1.0 H Neut % (Auto) 73.6 H Lymph % (Auto) 16.1 L [place] % (Auto) 8.8 H Eos % (Auto) 0.4 Baso % (Auto) 0.1 L Lymph # (Auto) 1.30 [place] # (Auto) 0.7 H Eos # (Auto) 0.0 Baso # (Auto) 0.0 Abs Immat Gran (auto) 0.08 H Absolute Neuts (auto) 6.0 Absolute Nucleated RBC 0.000 Nucleated RBC % 0.0 Sodium 136 L Potassium 3.4 Chloride 102 Carbon Dioxide 31 H Anion Gap 3 L BUN 18 H Creatinine 0.69 L Estim Creat Clear Calc 82 Estimated GFR > 60 Glucose 96 Calcium 7.9 L Total Bilirubin 0.3 AST 47 H ALT 84 H Alkaline Phosphatase 183 H NT-Pro-B Natriuret Pep 3060 H Total Protein 6.0 L Albumin 3.0 L
[2024-06-28] MEDS: polyethylene glycoL 3350 17 GM POWD.PACK PO (08:06)
[2024-06-28] MEDS: ACETAMINOPHEN 325 MG TABLET 650 MG PO ×2 (09:30→21:25)
--- NOTE | 2024-06-28 11:46 | P.PNIM_ITS ---
Progress Note: A&P Assessment and Plan (1) Acute pancreatitis: Qualifiers: Acute pancreatitis complication: no infection or necrosis Pancreatitis type: unspecified pancreatitis type Qualified Code(s): K85.90 - Acute pancreatitis without necrosis or infection, unspecified Code(s): K85.90 - Acute pancreatitis without necrosis or infection, unspecified Status: Acute Assessment and Plan: * acute, suspected to be secondary to cholelithiasis * IVF: LR @ 100 ml/hr. * trend lipase: 442>176. * AST 55>35>96>47, ALT 163>92>119>84, Total Bili WNL. Alkaline phosphatase 207>183. * triglycerides within normal limits * analgesics and antiemetics prn * CT abd/pelvis: Acute pancreatitis with significant fecal stasis * no ETOH use * general surgery and GI consulted, appreciate recommendations. * Low fat diet. (2) Cholelithiasis: Qualifiers: Biliary obstruction: without biliary obstruction Cholecystitis presence: without cholecystitis Cholelithiasis location: gallbladder Qualified Code(s): K80.20 - Calculus of gallbladder without cholecystitis without obstruction Code(s): K80.20 - Calculus of gallbladder without cholecystitis without obstruction Status: Acute Assessment and Plan: * acute pancreatitis w/mild elevation in LFTs recent concerns for gallbladder etiology. Ultrasound of the right upper quadrant showed cholelithiasis without evidence of cholecystitis * general surgery consulted. NPO for Laparoscopic cholecystectomy with intraoperative cholangiogram done on 06/26/24. * trend LFTs * AST 55>35>96>47, ALT 163>92>119>84, Total Bili WNL. Alkaline phosphatase 207>183. * WBC 14.1>11.1>7.5>8.1. * ERCP 06/27/24: Selective, deep bile duct cannulation achieved. There was a filling defect in the distal CBD consistent with stone. Sphincterectomy was performed. No immediate bleeding was seen. A stone extraction was performed with a 9-12 mm balloon catheter and the assistance of a 0.035 inch short-wire access for complete clearance of unfragmented stone. * Advance diet to low fat diet. (3) Constipation: Qualifiers: Constipation type: unspecified constipation type Qualified Code(s): K59.00 - Constipation, unspecified Code(s): K59.00 - Constipation, unspecified Status: Acute Assessment and Plan: * history of chronic constipation on MiraLax daily however has been out, will restart * soap fred enema, Dulcolax scheduled HS (4) Hypokalemia: Code(s): E87.6 - Hypokalemia Status: Acute Assessment and Plan: * Potassium 3.4. Potassium Chloride 40 meq PO x1 given. * Trend level. (5) Elevated brain natriuretic peptide (BNP) level: Code(s): R79.89 - Other specified abnormal findings of blood chemistry Status: Acute Assessment and Plan: * BNP 3060. * Lasix 20 mg ivp x 1 given. Subjective Date/time seen: 06/28/24 11:46 Interval history: Patient reports feeling better today but still being swollen. Patient denies chest pain, palpitations, headache, dizziness, nausea, or vomiting. Patient tolerated clear liquids this morning with advance diet for lunch. Review of Systems Review of Systems: All systems reviewed & are unremarkable except as noted in HPI and below Exam Const: General: comfortable and no acute distress Resp: Effort & Inspection: normal respiratory effort Auscultation: clear to auscultation bilaterally Cardio: Rate: bradycardic Rhythm: regular rhythm Other: Telemetry- Sinus nehal 58. Neuro: Speech: normal speech Extrem: Other: swelling to bilateral hands. Psych: Mental Status: mental status grossly normal Affect: normal affect Objective Data Vital Signs Vital Signs: Vital Signs - 24 hr 06/27/24 12:54 06/27/24 14:54 06/27/24 15:04 Temperature 97.2 F L Pulse Rate 82 48 L 57 L Respiratory Rate 20 20 15 Blood Pressure 114/44 L 154/86 H 172/97 H Pulse Oximetry 98 99 100 Oxygen Delivery Room Air Simple Face Mask Simple Face Mask Oxygen Flow Rate 6 4 06/27/24 15:14 06/27/24 15:24 06/27/24 15:34 Temperature Pulse Rate 62 65 62 Respiratory Rate 15 20 20 Blood Pressure 186/99 H 153/81 H 145/96 H Pulse Oximetry 94 94 90 Oxygen Delivery Room Air Room Air Room Air Oxygen Flow Rate 06/27/24 15:44 06/27/24 15:54 06/27/24 16:04 Temperature Pulse Rate 59 L 56 L 58 L Respiratory Rate 20 20 24 H Blood Pressure 160/72 H 145/101 H 167/86 H Pulse Oximetry 90 89 L 100 Oxygen Delivery Nasal Cannula Nasal Cannula Simple Face Mask Oxygen Flow Rate 2 2 8 06/27/24 16:05 06/27/24 16:14 06/27/24 16:24 Temperature Pulse Rate 54 L 53 L 53 L Respiratory Rate 24 H 24 H 24 H Blood Pressure 150/83 H 135/69 Pulse Oximetry 97 93 Oxygen Delivery Nasal Cannula Nasal Cannula Oxygen Flow Rate 4 4 06/27/24 16:45 06/27/24 17:00 06/27/24 17:15 Temperature 97.1 F L 97.3 F L Pulse Rate 51 L 46 L 43 L Respiratory Rate 21 H 20 24 H Blood Pressure 159/91 H 136/65 130/57 L Pulse Oximetry 94 95 95 Oxygen Delivery Nasal Cannula Oxygen Flow Rate 4 06/27/24 17:45 06/27/24 18:43 06/27/24 20:00 Temperature 97.5 F L 97.4 F L Pulse Rate 47 L 40 L Respiratory Rate 20 18 Blood Pressure 106/53 L 104/58 L Pulse Oximetry 96 99 Oxygen Delivery Room Air Oxygen Flow Rate 06/27/24 20:00 06/27/24 22:00 06/28/24 00:00 Temperature 97.7 F Pulse Rate 37 L 60 42 L Respiratory Rate 18 Blood Pressure 95/55 L Pulse Oximetry 95 Oxygen Delivery Oxygen Flow Rate 06/28/24 04:00 06/28/24 06:00 Temperature 99.3 F Pulse Rate 49 L 60 Respiratory Rate 18 Blood Pressure 95/40 L Pulse Oximetry 92 Oxygen Delivery Oxygen Flow Rate Intake/Output Intake/Output: Intake & Output 06/25/24 06/26/24 06/27/24 06/28/24 23:59 23:59 23:59 23:59 Intake Total 3000 3290 1695 210 Output Total 2 Balance 3000 3290 1693 210 Meds/Results Medications: Active Medications Generic Name Dose Route Start Last Admin Trade Name Freq PRN Reason Stop Dose Admin Acetaminophen 650 mg 06/25/24 16:17 06/28/24 09:30 Acetaminophen 325 Mg Tablet PO 650 mg Q6H PRN Administration Mild Pain (1-3) or Fever Hydrocodone Bitart/Acetaminophen 1 tab 06/26/24 16:20 Hydrocodone/Acetaminophen (*Crx) 5-325 Mg Tablet PO Q4H PRN Pain Rated 4-6 Hydrocodone Bitart/Acetaminophen 1 tab 06/26/24 16:20 Hydrocodone/Acetaminophen (*Crx) 10-325 Mg Tablet PO Q4H PRN Pain Rated 7-10 Calcium Carbonate 200 mg 06/25/24 19:56 Calcium Carbonate (Tums) 500 Mg (200 Mg Elemental) PO Q6H PRN Indigestion Dextrose 12.5 gm 06/25/24 16:14 Dextrose 50% 25 Gm/50 Ml Syringe IV PUSH PRN PRN Hypoglycemia Protocol Diphenhydramine HCl 25 mg 06/26/24 16:20 Diphenhydramine Hcl Inj 50 Mg/Ml Vial IV PUSH Q6H PRN Itching Glucagon 1 mg 06/25/24 16:14 Glucagon For Inj 1 Mg Vial IM PRN PRN Hypoglycemia Protocol Glucose 15 gm 06/25/24 16:14 Glucose Oral Gel 15 Gm Of Glucse In 37.5 Gm Tube PO PRN PRN Hypoglycemia Protocol Hydromorphone HCl 1 mg 06/26/24 16:23 06/27/24 06:43 Hydromorphone Hcl Inj (*Crx) 2 Mg/Ml Vial IV PUSH 1 mg Q2H PRN Administration Breakthrough Pain Rated 7-10 or NPO Hydromorphone HCl 0.5 mg 06/26/24 16:24 Hydromorphone Hcl Inj (*Crx) 2 Mg/Ml Vial IV PUSH Q2H PRN Breakthrough Pain Rated 4-6 or NPO Dextrose 1,000 mls @ 100 mls/hr 06/25/24 16:14 Dextrose 5% 1,000 Ml IVPB PRN PRN Hypoglycemia Protocol Ibuprofen 800 mg in 200 mls @ 400 mls/hr 06/26/24 16:20 Caldolor 800 Mg/200 Ml IVPB Q6H PRN Breakthrough Pain Rated 1-3 or NPO Naloxone HCl 0.1 mg 06/26/24 16:20 Naloxone Hcl 0.4 Mg/Ml Vial IV PUSH Q2M PRN Opiate Reversal Ondansetron HCl 4 mg 06/26/24 16:20 Ondansetron Inj 4 Mg/2 Ml Vial IV PUSH Q4H PRN Nausea And Vomiting Polyethylene Glycol 17 gm 06/26/24 09:00 06/28/24 08:06 Polyethylene Glycol 3350 17 Gm Powd.Pack PO 17 gm QAM MERRY Administration Senna/Docusate Sodium 1 tab 06/25/24 21:00 06/27/24 20:38 Senna/Docusate Sodium Tablet PO 1 tab HS MERRY Administration Simethicone 0.6 ml 06/27/24 14:57 06/27/24 14:58 Simethicone Oral Suspension 20 Mg/0.3 Ml 30 Ml Bottle PO 0.6 ml ONCE PRN Administration Gas Discomfort Radiology Results: ITS Impressions Abdomen/Pelvis CT 06/25/24 13:38 IMPRESSION: Acute pancreatitis with significant fecal stasis, as detailed above. Abdomen Ultrasound 06/25/24 16:13 IMPRESSION: Cholelithiasis, without ultrasound evidence of cholecystitis. Cholangiogram,Operative 06/26/24 16:15 IMPRESSION: 1. Small obstructing stone at the distalmost common bile duct with no contrast extending into the duodenum. Dr. Reynoso discussed these findings with Dr. Zhou at the time of the procedure. Chest X-Ray 06/27/24 16:19 IMPRESSION: 1. New perihilar and lower lung predominant interstitial pulmonary edema. 2. Increasing small left pleural effusion with associated left basilar atelectasis and/or pneumonia. Labs Labs: Laboratory Results - last 24 hr 06/28/24 05:03 WBC 8.1 RBC 3.54 L Hgb 10.3 L Hct 31.3 L MCV 88.4 MCH 29.1 MCHC 32.9 RDW 12.0 Plt Count 211 MPV 10.4 Immature Gran % (Auto) 1.0 H Neut % (Auto) 73.6 H Lymph % (Auto) 16.1 L [place] % (Auto) 8.8 H Eos % (Auto) 0.4 Baso % (Auto) 0.1 L Lymph # (Auto) 1.30 [place] # (Auto) 0.7 H Eos # (Auto) 0.0 Baso # (Auto) 0.0 Abs Immat Gran (auto) 0.08 H Absolute Neuts (auto) 6.0 Absolute Nucleated RBC 0.000 Nucleated RBC % 0.0 Sodium 136 L Potassium 3.4 Chloride 102 Carbon Dioxide 31 H Anion Gap 3 L BUN 18 H Creatinine 0.69 L Estim Creat Clear Calc 82 Estimated GFR > 60 Glucose 96 Calcium 7.9 L Total Bilirubin 0.3 AST 47 H ALT 84 H Alkaline Phosphatase 183 H NT-Pro-B Natriuret Pep 3060 H Total Protein 6.0 L Albumin 3.0 L Quality VTE Prophylaxis VTE prophylaxis: mechanical ordered
[2024-06-28] MEDS: FUROSEMIDE INJ 40 MG/4 ML VIAL 20 MG IV PUSH (12:10)
[2024-06-28] MEDS: POTASSIUM CHLORIDE 20 MEQ ER TABLET 40 MEQ PO (12:11)
--- NOTE | 2024-06-28 13:52 | P.PNGS_ITS ---
Progress Note: A&P Assessment and Plan (1) Acute pancreatitis: Qualifiers: Acute pancreatitis complication: no infection or necrosis Pancreatitis type: unspecified pancreatitis type Qualified Code(s): K85.90 - Acute pancreatitis without necrosis or infection, unspecified Code(s): K85.90 - Acute pancreatitis without necrosis or infection, unspecified Status: Acute Assessment and Plan: * Acute biliary pancreatitis with choledocholithiasis on IOC. Pancreatitis resolving. ERCP today. * Continue medical management. (2) Cholelithiasis: Qualifiers: Biliary obstruction: without biliary obstruction Cholecystitis presence: without cholecystitis Cholelithiasis location: gallbladder Qualified Code(s): K80.20 - Calculus of gallbladder without cholecystitis without obstruction Code(s): K80.20 - Calculus of gallbladder without cholecystitis without obstruction Status: Acute Assessment and Plan: * Postop day 2 following laparoscopic cholecystectomy. Incision sites clean and dry with no signs of infection. IOC showed distal common bile duct stone. ERCP yesterday. Continue PRN pain medication as needed. * Tolerating regular diet without N/V. Passing flatus. * Plan to discharge tomorrow. Subjective Subjective Date/Time Seen: 06/28/24 13:52 Interval history: Patient does not have any new complaints today. She states pain is decreased significantly since the ERCP yesterday. Able to tolerate regular diet without nausea or vomiting. Patient has not had a bowel movement but is passing flatus. She is surgically stable for discharge but expresses wishes to stay overnight and leave tomorrow due to transportation situation. Exam Const: General: comfortable, no acute distress and average body habitus Nutritional Appearance: average body habitus Orientation/consciousness: patient oriented x3 HENMT: Head: normocephalic and atraumatic Ears: hearing grossly normal bilaterally Mouth: Yes moist mucous membranes Eyes: General: appearance normal, both eyes and all related structures Pupils: Equal, round and reactive pupils present Neck: Neck: normal visual inspection and full ROM Resp: Effort & Inspection: no respiratory distress Auscultation: clear to auscultation bilaterally Cardio: Rate: regular rate Rhythm: regular rhythm Peripheral pulses: Peripheral pulses 2+ throughout GI: Inspection: distended, incision (Dry and glue intact) and other (mildly d istended) GI Palp: No Tenderness to palpation present (GI) and No Guarding due to palpation present (GI) Auscultation: normal bowel sounds Skin: General skin exam: normal color Neuro: General: patient oriented x3, moves all extremities and no focal motor deficits Cranial nerves: Yes Equal, round and reactive pupils present Speech: normal speech Motor exam (neuro): 5/5 motor strength present throughout Extrem: General: normal to inspection and no edema Psych: Mental Status: mental status grossly normal Attitude: cooperative Insight: Good insight present (Psych) Judgement: Good judgement present (Psych) Objective Data Vital Signs Vital Signs: Vital Signs - 24 hr 06/27/24 14:54 06/27/24 15:04 06/27/24 15:14 Temperature Pulse Rate 48 L 57 L 62 Respiratory Rate 20 15 15 Blood Pressure 154/86 H 172/97 H 186/99 H Pulse Oximetry 99 100 94 Oxygen Delivery Simple Face Mask Simple Face Mask Room Air Oxygen Flow Rate 6 4 06/27/24 15:24 06/27/24 15:34 06/27/24 15:44 Temperature Pulse Rate 65 62 59 L Respiratory Rate 20 20 20 Blood Pressure 153/81 H 145/96 H 160/72 H Pulse Oximetry 94 90 90 Oxygen Delivery Room Air Room Air Nasal Cannula Oxygen Flow Rate 2 06/27/24 15:54 06/27/24 16:04 06/27/24 16:05 Temperature Pulse Rate 56 L 58 L 54 L Respiratory Rate 20 24 H 24 H Blood Pressure 145/101 H 167/86 H Pulse Oximetry 89 L 100 Oxygen Delivery Nasal Cannula Simple Face Mask Oxygen Flow Rate 2 8 06/27/24 16:14 06/27/24 16:24 06/27/24 16:45 Temperature Pulse Rate 53 L 53 L 51 L Respiratory Rate 24 H 24 H 21 H Blood Pressure 150/83 H 135/69 159/91 H Pulse Oximetry 97 93 94 Oxygen Delivery Nasal Cannula Nasal Cannula Nasal Cannula Oxygen Flow Rate 4 4 4 06/27/24 17:00 06/27/24 17:15 06/27/24 17:45 Temperature 97.1 F L 97.3 F L 97.5 F L Pulse Rate 46 L 43 L 47 L Respiratory Rate 20 24 H 20 Blood Pressure 136/65 130/57 L 106/53 L Pulse Oximetry 95 95 96 Oxygen Delivery Oxygen Flow Rate 06/27/24 18:43 06/27/24 20:00 06/27/24 20:00 Temperature 97.4 F L Pulse Rate 40 L 37 L Respiratory Rate 18 Blood Pressure 104/58 L Pulse Oximetry 99 Oxygen Delivery Room Air Oxygen Flow Rate 06/27/24 22:00 06/28/24 00:00 06/28/24 04:00 Temperature 97.7 F Pulse Rate 60 42 L 49 L Respiratory Rate 18 Blood Pressure 95/55 L Pulse Oximetry 95 Oxygen Delivery Oxygen Flow Rate 06/28/24 06:00 Temperature 99.3 F Pulse Rate 60 Respiratory Rate 18 Blood Pressure 95/40 L Pulse Oximetry 92 Oxygen Delivery Oxygen Flow Rate Intake/Output Intake/Output: Intake & Output 06/25/24 06/26/24 06/27/24 06/28/24 23:59 23:59 23:59 23:59 Intake Total 3000 3290 1695 210 Output Total 2 Balance 3000 3290 1693 210 Meds/Results Medications: Active Medications Generic Name Dose Route Start Last Admin Trade Name Freq PRN Reason Stop Dose Admin Acetaminophen 650 mg 06/25/24 16:17 06/28/24 09:30 Acetaminophen 325 Mg Tablet PO 650 mg Q6H PRN Administration Mild Pain (1-3) or Fever Hydrocodone Bitart/Acetaminophen 1 tab 06/26/24 16:20 Hydrocodone/Acetaminophen (*Crx) 5-325 Mg Tablet PO Q4H PRN Pain Rated 4-6 Hydrocodone Bitart/Acetaminophen 1 tab 06/26/24 16:20 Hydrocodone/Acetaminophen (*Crx) 10-325 Mg Tablet PO Q4H PRN Pain Rated 7-10 Calcium Carbonate 200 mg 06/25/24 19:56 Calcium Carbonate (Tums) 500 Mg (200 Mg Elemental) PO Q6H PRN Indigestion Dextrose 12.5 gm 06/25/24 16:14 Dextrose 50% 25 Gm/50 Ml Syringe IV PUSH PRN PRN Hypoglycemia Protocol Diphenhydramine HCl 25 mg 06/26/24 16:20 Diphenhydramine Hcl Inj 50 Mg/Ml Vial IV PUSH Q6H PRN Itching Glucagon 1 mg 06/25/24 16:14 Glucagon For Inj 1 Mg Vial IM PRN PRN Hypoglycemia Protocol Glucose 15 gm 06/25/24 16:14 Glucose Oral Gel 15 Gm Of Glucse In 37.5 Gm Tube PO PRN PRN Hypoglycemia Protocol Hydromorphone HCl 1 mg 06/26/24 16:23 06/27/24 06:43 Hydromorphone Hcl Inj (*Crx) 2 Mg/Ml Vial IV PUSH 1 mg Q2H PRN Administration Breakthrough Pain Rated 7-10 or NPO Hydromorphone HCl 0.5 mg 06/26/24 16:24 Hydromorphone Hcl Inj (*Crx) 2 Mg/Ml Vial IV PUSH Q2H PRN Breakthrough Pain Rated 4-6 or NPO Dextrose 1,000 mls @ 100 mls/hr 06/25/24 16:14 Dextrose 5% 1,000 Ml IVPB PRN PRN Hypoglycemia Protocol Ibuprofen 800 mg in 200 mls @ 400 mls/hr 06/26/24 16:20 Caldolor 800 Mg/200 Ml IVPB Q6H PRN Breakthrough Pain Rated 1-3 or NPO Naloxone HCl 0.1 mg 06/26/24 16:20 Naloxone Hcl 0.4 Mg/Ml Vial IV PUSH Q2M PRN Opiate Reversal Ondansetron HCl 4 mg 06/26/24 16:20 Ondansetron Inj 4 Mg/2 Ml Vial IV PUSH Q4H PRN Nausea And Vomiting Polyethylene Glycol 17 gm 06/26/24 09:00 06/28/24 08:06 Polyethylene Glycol 3350 17 Gm Powd.Pack PO 17 gm QAM MERRY Administration Senna/Docusate Sodium 1 tab 06/25/24 21:00 06/27/24 20:38 Senna/Docusate Sodium Tablet PO 1 tab HS MERRY Administration Simethicone 0.6 ml 06/27/24 14:57 06/27/24 14:58 Simethicone Oral Suspension 20 Mg/0.3 Ml 30 Ml Bottle PO 0.6 ml ONCE PRN Administration Gas Discomfort Radiology Results: ITS Impressions Abdomen/Pelvis CT 06/25/24 13:38 IMPRESSION: Acute pancreatitis with significant fecal stasis, as detailed above. Abdomen Ultrasound 06/25/24 16:13 IMPRESSION: Cholelithiasis, without ultrasound evidence of cholecystitis. Cholangiogram,Operative 06/26/24 16:15 IMPRESSION: 1. Small obstructing stone at the distalmost common bile duct with no contrast extending into the duodenum. Dr. Reynoso discussed these findings with Dr. Zhou at the time of the procedure. Chest X-Ray 06/27/24 16:19 IMPRESSION: 1. New perihilar and lower lung predominant interstitial pulmonary edema. 2. Increasing small left pleural effusion with associated left basilar atelectasis and/or pneumonia. Labs Labs: Laboratory Results - last 24 hr 06/28/24 06/28/24 05:03 11:58 WBC 8.1 RBC 3.54 L Hgb 10.3 L Hct 31.3 L MCV 88.4 MCH 29.1 MCHC 32.9 RDW 12.0 Plt Count 211 MPV 10.4 Immature Gran % (Auto) 1.0 H Neut % (Auto) 73.6 H Lymph % (Auto) 16.1 L [place] % (Auto) 8.8 H Eos % (Auto) 0.4 Baso % (Auto) 0.1 L Lymph # (Auto) 1.30 [place] # (Auto) 0.7 H Eos # (Auto) 0.0 Baso # (Auto) 0.0 Abs Immat Gran (auto) 0.08 H Absolute Neuts (auto) 6.0 Absolute Nucleated RBC 0.000 Nucleated RBC % 0.0 Sodium 136 L Potassium 3.4 Chloride 102 Carbon Dioxide 31 H Anion Gap 3 L BUN 18 H Creatinine 0.69 L Estim Creat Clear Calc 82 Estimated GFR > 60 Glucose 96 Calcium 7.9 L Magnesium 2.0 Total Bilirubin 0.3 AST 47 H ALT 84 H Alkaline Phosphatase 183 H NT-Pro-B Natriuret Pep 3060 H Total Protein 6.0 L Albumin 3.0 L
[2024-06-28] MEDS: SENNA/DOCUSATE SODIUM TABLET 1 TAB PO (20:40)
[2024-06-29] VITALS: PULSE 48
[2024-06-29 04:00] VITALS: PULSE 55
[2024-06-29 04:58] LABS: Basophils Percent Auto 0.3 % (0.2-1.2); Eosinophils Absolute Auto 0.1 K/mm3 (0-0.3); Eosinophils Percent Auto 0.6 % (0-4.4); Hematocrit 33.3 % (37.0-47.0); Hemoglobin 10.9 g/dL (12.0-15.0); Immature Granulocyte Absolute 0.17 K/mm3 (0.00-0.031); Immature Granulocyte Percent A 1.8 % (0-0.5); Lymphocytes Absolute Auto 1.59 K/mm3 (0.9-3.2); Lymphocytes Percent Auto 16.5 % (18.3-44.2); Mean Corpuscular HGB Conc 32.7 g/dl (32-36); Mean Corpuscular Hemoglobin 29.4 pg (26-34); Mean Corpuscular Volume 89.8 fl (80-100); Mean Platelet Volume 10.3 fl (7.4-10.4); Monocytes Absolute Auto 0.8 K/mm3 (0.1-0.6); Monocytes Percent Auto 7.8 % (2.6-8.5); Neutrophils Absolute Auto 7.1 K/mm3 (1.3-6.7); Nucleated Red Blood Cells Perc 0.4 % (0.0-0.2); Platelet Count Result 239 k/mm3 (150-375); Red Blood Count 3.71 M/mm3 (4.2-5.4); White Blood Count 9.7 K/mm3 (4.5-10.0)
[2024-06-29 05:22] LABS: Alanine Aminotransferase 59 U/L (6-35); Albumin Level 3.1 g/dL (3.5-5.1); Alkaline Phosphatase 153 U/L (38-126); Anion Gap 6 mmol/L (4-12); Aspartate Amino Transferase 27 U/L (14-36); Bilirubin,Total 0.4 mg/dL (0.2-1.3); Blood Urea Nitrogen 10 mg/dL (7-17); Carbon Dioxide 29 mmol/L (22-30); Chloride 101 mmol/L (98-107); Estimated CRCL calculation 92 ml/min; Estimated Glomerular Filt Rate > 60; Glucose 93 mg/dL (65-110); Potassium 3.4 mmol/L (3.4-5.0); Sodium 136 mmol/L (137-145)
[2024-06-29 06:00] VITALS: BP 106/45; PULSE 60; RESP 20; TEMP 37.1; O2SAT 93
[2024-06-29 08:50] VITALS: PULSE 48
[2024-06-29] MEDS: polyethylene glycoL 3350 17 GM POWD.PACK PO (08:50)
[2024-06-29] MEDS: POTASSIUM CHLORIDE 20 MEQ ER TABLET PO (08:50)
--- NOTE | 2024-06-29 10:43 | P.PNGS_ITS ---
Progress Note: A&P Assessment and Plan (1) Acute pancreatitis: Qualifiers: Acute pancreatitis complication: no infection or necrosis Pancreatitis type: unspecified pancreatitis type Qualified Code(s): K85.90 - Acute pancreatitis without necrosis or infection, unspecified Code(s): K85.90 - Acute pancreatitis without necrosis or infection, unspecified Status: Acute Assessment and Plan: * Surgically stable for discharge. Instructions discussed with patient. Follow up in office in 2 weeks. May take MiraLax twice daily as needed for Constipation. (2) Cholelithiasis: Qualifiers: Biliary obstruction: without biliary obstruction Cholecystitis presence: without cholecystitis Cholelithiasis location: gallbladder Qualified Code(s): K80.20 - Calculus of gallbladder without cholecystitis without obstruction Code(s): K80.20 - Calculus of gallbladder without cholecystitis without obstruction Status: Acute (3) Constipation: Qualifiers: Constipation type: unspecified constipation type Qualified Code(s): K59.00 - Constipation, unspecified Code(s): K59.00 - Constipation, unspecified Status: Acute Subjective Subjective Date/Time Seen: 06/29/24 10:43 Interval history: Tolerating diet. Pain controlled. Mostly c/o fatigue. No BM since before surgery. Passing flatus. Exam GI: Inspection: non-distended and incision (intact with glue) GI Palp: Yes Soft to palpation, No Tenderness to palpation present (GI), No Guarding due to palpation present (GI) and No Rebound tenderness present Auscultation: normal bowel sounds Objective Data Vital Signs Vital Signs: Vital Signs - 24 hr 06/28/24 12:00 06/28/24 14:00 06/28/24 16:00 Temperature 98.6 F Pulse Rate 49 L 63 53 L Respiratory Rate 17 Blood Pressure 101/58 L Pulse Oximetry 93 Oxygen Delivery 06/28/24 20:00 06/28/24 20:00 06/28/24 21:14 Temperature 99.3 F Pulse Rate 54 L 62 Respiratory Rate 20 Blood Pressure 102/40 L Pulse Oximetry 93 Oxygen Delivery Room Air 06/29/24 00:00 06/29/24 04:00 06/29/24 06:00 Temperature 98.7 F Pulse Rate 48 L 55 L 60 Respiratory Rate 20 Blood Pressure 106/45 L Pulse Oximetry 93 Oxygen Delivery Intake/Output Intake/Output: Intake & Output 06/26/24 06/27/24 06/28/24 06/29/24 23:59 23:59 23:59 23:59 Intake Total 3290 1695 852 540 Output Total 2 Balance 3290 1693 852 540 Meds/Results Medications: Active Medications Generic Name Dose Route Start Last Admin Trade Name Freq PRN Reason Stop Dose Admin Acetaminophen 650 mg 06/25/24 16:17 06/28/24 21:25 Acetaminophen 325 Mg Tablet PO 650 mg Q6H PRN Administration Mild Pain (1-3) or Fever Hydrocodone Bitart/Acetaminophen 1 tab 06/26/24 16:20 Hydrocodone/Acetaminophen (*Crx) 5-325 Mg Tablet PO Q4H PRN Pain Rated 4-6 Hydrocodone Bitart/Acetaminophen 1 tab 06/26/24 16:20 Hydrocodone/Acetaminophen (*Crx) 10-325 Mg Tablet PO Q4H PRN Pain Rated 7-10 Calcium Carbonate 200 mg 06/25/24 19:56 Calcium Carbonate (Tums) 500 Mg (200 Mg Elemental) PO Q6H PRN Indigestion Dextrose 12.5 gm 06/25/24 16:14 Dextrose 50% 25 Gm/50 Ml Syringe IV PUSH PRN PRN Hypoglycemia Protocol Diphenhydramine HCl 25 mg 06/26/24 16:20 Diphenhydramine Hcl Inj 50 Mg/Ml Vial IV PUSH Q6H PRN Itching Glucagon 1 mg 06/25/24 16:14 Glucagon For Inj 1 Mg Vial IM PRN PRN Hypoglycemia Protocol Glucose 15 gm 06/25/24 16:14 Glucose Oral Gel 15 Gm Of Glucse In 37.5 Gm Tube PO PRN PRN Hypoglycemia Protocol Hydromorphone HCl 1 mg 06/26/24 16:23 06/27/24 06:43 Hydromorphone Hcl Inj (*Crx) 2 Mg/Ml Vial IV PUSH 1 mg Q2H PRN Administration Breakthrough Pain Rated 7-10 or NPO Hydromorphone HCl 0.5 mg 06/26/24 16:24 Hydromorphone Hcl Inj (*Crx) 2 Mg/Ml Vial IV PUSH Q2H PRN Breakthrough Pain Rated 4-6 or NPO Dextrose 1,000 mls @ 100 mls/hr 06/25/24 16:14 Dextrose 5% 1,000 Ml IVPB PRN PRN Hypoglycemia Protocol Ibuprofen 800 mg in 200 mls @ 400 mls/hr 06/26/24 16:20 Caldolor 800 Mg/200 Ml IVPB Q6H PRN Breakthrough Pain Rated 1-3 or NPO Naloxone HCl 0.1 mg 06/26/24 16:20 Naloxone Hcl 0.4 Mg/Ml Vial IV PUSH Q2M PRN Opiate Reversal Ondansetron HCl 4 mg 06/26/24 16:20 Ondansetron Inj 4 Mg/2 Ml Vial IV PUSH Q4H PRN Nausea And Vomiting Polyethylene Glycol 17 gm 06/26/24 09:00 06/29/24 08:50 Polyethylene Glycol 3350 17 Gm Powd.Pack PO 17 gm QAM MERRY Administration Senna/Docusate Sodium 1 tab 06/25/24 21:00 06/28/24 20:40 Senna/Docusate Sodium Tablet PO 1 tab HS MERRY Administration Simethicone 0.6 ml 06/27/24 14:57 06/27/24 14:58 Simethicone Oral Suspension 20 Mg/0.3 Ml 30 Ml Bottle PO 0.6 ml ONCE PRN Administration Gas Discomfort Radiology Results: ITS Impressions Abdomen/Pelvis CT 06/25/24 13:38 IMPRESSION: Acute pancreatitis with significant fecal stasis, as detailed above. Abdomen Ultrasound 06/25/24 16:13 IMPRESSION: Cholelithiasis, without ultrasound evidence of cholecystitis. Cholangiogram,Operative 06/26/24 16:15 IMPRESSION: 1. Small obstructing stone at the distalmost common bile duct with no contrast extending into the duodenum. Dr. Reynoso discussed these findings with Dr. Zhou at the time of the procedure. Chest X-Ray 06/27/24 16:19 IMPRESSION: 1. New perihilar and lower lung predominant interstitial pulmonary edema. 2. Increasing small left pleural effusion with associated left basilar atelectasis and/or pneumonia. Labs Labs: Laboratory Results - last 24 hr 06/28/24 06/29/24 11:58 04:04 WBC 9.7 RBC 3.71 L Hgb 10.9 L Hct 33.3 L MCV 89.8 MCH 29.4 MCHC 32.7 RDW 12.0 Plt Count 239 MPV 10.3 Immature Gran % (Auto) 1.8 H Neut % (Auto) 73.0 Lymph % (Auto) 16.5 L [place] % (Auto) 7.8 Eos % (Auto) 0.6 Baso % (Auto) 0.3 Lymph # (Auto) 1.59 [place] # (Auto) 0.8 H Eos # (Auto) 0.1 Baso # (Auto) 0.0 Abs Immat Gran (auto) 0.17 H Absolute Neuts (auto) 7.1 H Absolute Nucleated RBC 0.040 H Nucleated RBC % 0.4 H Sodium 136 L Potassium 3.4 Chloride 101 Carbon Dioxide 29 Anion Gap 6 BUN 10 D Creatinine 0.61 L Estim Creat Clear Calc 92 Estimated GFR > 60 Glucose 93 Calcium 8.0 L Magnesium 2.0 Total Bilirubin 0.4 AST 27 ALT 59 H Alkaline Phosphatase 153 H Total Protein 6.0 L Albumin 3.1 L
--- NOTE | 2024-06-29 11:03 | PM.DS ---
DS: Admitting Diagnosis Discharge Date 06/29/2024 Admitting Diagnosis upper abdominal pain DS: Discharge Diagnosis Discharge Diagnosis (1) Acute pancreatitis: Qualifiers: Acute pancreatitis complication: no infection or necrosis Pancreatitis type: unspecified pancreatitis type Qualified Code(s): K85.90 - Acute pancreatitis without necrosis or infection, unspecified Code(s): K85.90 - Acute pancreatitis without necrosis or infection, unspecified Status: Acute (2) Cholelithiasis: Qualifiers: Biliary obstruction: without biliary obstruction Cholecystitis presence: without cholecystitis Cholelithiasis location: gallbladder Qualified Code(s): K80.20 - Calculus of gallbladder without cholecystitis without obstruction Code(s): K80.20 - Calculus of gallbladder without cholecystitis without obstruction Status: Acute (3) Constipation: Qualifiers: Constipation type: unspecified constipation type Qualified Code(s): K59.00 - Constipation, unspecified Code(s): K59.00 - Constipation, unspecified Status: Acute (4) Hypokalemia: Code(s): E87.6 - Hypokalemia Status: Acute (5) Elevated brain natriuretic peptide (BNP) level: Code(s): R79.89 - Other specified abnormal findings of blood chemistry Status: Acute DS: Summary Hospital Course Hospital Course: Initial VS at presentation: 97.2? F, HR 78, R 20, 128/76, and 98% on RA. ED workup showed: WBC 14.1, no anemia, sodium 134, creatinine 0.65 and GFR >60, total bilirubin 0.7, AST 55, ALT 163, initial troponin negative, triglycerides normal, and lipase 442. UA showed a high specific gravity and 1+ protein otherwise unremarkable. CT of the abdomen/pelvis showed acute pancreatitis with significant fecal stasis. Ultrasound of the RUQ showed cholelithiasis without significant evidence of cholecystitis. 06/26 laparoscopic Cholecystectomy 06/27 ERCP: Selective, deep bile duct cannulation achieved. There was a filling defect in the distal CBD consistent with stone. Sphincterectomy was performed. No immediate bleeding was seen. A stone extraction was performed with a 9-12 mm balloon catheter and the assistance of a 0.035 inch short-wire access for complete clearance of unfragmented stone. Liver enzymes improved. WBC improved from 14.1>9.7. Patient given Lasix IV after getting short of breath with fluids during procedure. Chest X-ray showed: IMPRESSION: 1. New perihilar and lower lung predominant interstitial pulmonary edema. 2. Increasing small left pleural effusion with associated left basilar atelectasis and/or pneumonia. Patient doing well. Pain controlled and tolerating food well. Discharge to home. Status at Discharge Functional status at discharge: independent ambulation Overall status at discharge: patient is progressing back to baseline Time Spent with Patient Time attestation: Total time spent providing and/or coordinating discharge services: Time spent: Greater than 30 minutes Exam Const: General: comfortable and no acute distress Resp: Effort & Inspection: normal respiratory effort Auscultation: clear to auscultation bilaterally Cardio: Rate: regular rate Rhythm: regular rhythm GI: GI Palp: Yes Soft to palpation Auscultation: normal bowel sounds Skin: Other: Laparoscopic abdominal incisions glue intact, no redness or drainage. Extrem: General: no pedal edema Other: Trace swelling to bilateral hands. Psych: Mental Status: mental status grossly normal Affect: normal affect DS: Data Data Completed and Pending Completed studies during hospitalization: Pending at discharge 06/26/24 14:52 Surgical [PTH] Routine Labs on day of discharge: Labs from last 24 hours 06/29/24 06/28/24 04:04 11:58 WBC 9.7 RBC 3.71 L Hgb 10.9 L Hct 33.3 L MCV 89.8 MCH 29.4 MCHC 32.7 RDW 12.0 Plt Count 239 MPV 10.3 Immature Gran % (Auto) 1.8 H Neut % (Auto) 73.0 Lymph % (Auto) 16.5 L [place] % (Auto) 7.8 Eos % (Auto) 0.6 Baso % (Auto) 0.3 Lymph # (Auto) 1.59 [place] # (Auto) 0.8 H Eos # (Auto) 0.1 Baso # (Auto) 0.0 Abs Immat Gran (auto) 0.17 H Absolute Neuts (auto) 7.1 H Absolute Nucleated RBC 0.040 H Nucleated RBC % 0.4 H Sodium 136 L Potassium 3.4 Chloride 101 Carbon Dioxide 29 Anion Gap 6 BUN 10 D Creatinine 0.61 L Estim Creat Clear Calc 92 Estimated GFR > 60 Glucose 93 Calcium 8.0 L Magnesium 2.0 Total Bilirubin 0.4 AST 27 ALT 59 H Alkaline Phosphatase 153 H Total Protein 6.0 L Albumin 3.1 L Discharge Plan Discharge Attending physician on discharge: Earnestine Blanco Consulting providers: Donavan Castillo Discharging Clinician: Ruthie Lopes Anticipated Discharge Date/Time: 06/29/24 13:00 Patient Disposition: Home Activity: may shower and other - see discharge instructions Diet: low fat Wound Care Instructions: other - see discharge instructions Discharge Instructions: DISCHARGE INSTRUCTION SHEET FOR HERNIA, GALLBLADDER AND APPENDIX SURGERIES DR. CASTILLO PATIENT TO TAKE HOME 1. May shower, no soaking in bath/pool x 2weeks. 2. Call office for: Wound increasingly painful or bleeding Vomiting Fever of greater than 101 degrees 3. If no bowel movement for three days, take 1 oz. (30 ml) Milk of Magnesia or MiraLax 17g 1 to 2 times daily. 4. No heavy lifting > 10-15 pounds x weeks for hernia repairs and 2 weeks for laparoscopic cholecystectomy or appendectomy. 5. No driving for 3 days or while taking narcotic pain medications. 6. Ice to surgical site for 48 hours (30 min on, then 30 min off). 7. Up walking 10-30 minutes three times per day. 8. Resume previous home medications. 9. Follow-up 10-14 days in office for wound check or as previously scheduled. ([phone]) 10. Oral pain medications prescription to be sent to pharmacy. Take Tylenol 500mg every 6 hours and Ibuprofen 600mg every 6 hours for the first 2 days, then as needed. 11. NUTRITION: Start out by drinking fluids and increase your diet as tolerated. If you experience nausea, try dry toast, crackers, and 7-UP. If nausea or vomiting persists, contact your surgeon?s office. 12. Gallbladders-Low Fat Diet for 2 weeks (send care note of low fat diet) 13. Inguinal Hernias-wear scrotal support for 48 hours 14. Abdominal Hernias-if sent home with abdominal binder, wear for the first 2 weeks (may remove to shower or at night to sleep). - You can use over the counter Miralax and Colace for constipation. Thank you for entrusting [facility] with your healthcare! Revised June 2018 Patient Instructions: Antibiotic Form, Constipation (GEN), Low Fat Diet (GEN), Laparoscopic Cholecystectomy (DC) Patient Language: Czech Stand Alone Forms: General Discharge Information Follow-up/Referrals: Donavan Castillo DO [Physician] - 2 Weeks Discharge Medications: Continued buprenorphine-naloxone 8-2 mg film 1 film sublingual Q24H Date of admission: 06/25/24 16:14 Primary Care Provider: UNKNOWN,DOCTOR Admitting Provider: Jamarcus David Attending physician on admission: Jamarcus David Condition: Stable Hospitalist MIPS Heart Failure (Exclusion) Patient has history of Heart Transplant or Left Ventricular Assistive Device?: No IF YES, STOP HERE Heart Failure (Qualifier) Patient has current or prior documentation of LVEF less than or equal to 40%, or mod/servere depressed LVSF?: No IF NO, STOP HERE
[2024-06-29] MEDS: DOCUSATE SODIUM 100 MG CAPSULE PO (11:42)
[2024-06-29 12:00] VITALS: PULSE 52
[2024-06-29 12:03] VITALS: O2SAT 94
--- NOTE | 2024-06-29 12:51 | PC.NURSE ---
Discharge instructions explained to patient. No questions or concerns at this time. IV removed. Tele removed. Patient waiting for to arrive.
--- NOTE | 2024-06-29 14:03 | PC.NURSE ---
Patient taken to car via wheelchair.
== END 2024-06-29 13:15 | disposition home or self-care (01) ==
LOC: ANHED 14:54 → ANH2MED 17:33
PROVIDERS: Internal Medicine Gastroenterology; Nurse Practitioner Family; Student in an Organized Health Care Education/Training Program; Surgery; Admitting Provider Internal Medicine; Emergency Provider Physician Assistant; Visit Provider Family Medicine
PROC: 0FT44ZZ Resection of Gallbladder, Percutaneous Endoscopic Approach (ICD-10-PCS; CPT 47562; principal; 2024-06-26 13:30)
PROC: (CPT 43260; principal; 2024-06-27 13:30)
DX: K85.10 Biliary acute pancreatitis without necrosis or infection (principal); K80.64 Calculus of gallbladder and bile duct with chronic cholecystitis without obstruction; E87.6 Hypokalemia; K59.00 Constipation, unspecified; F17.210 Nicotine dependence, cigarettes, uncomplicated; Z87.442 Personal history of urinary calculi; R79.89 Other specified abnormal findings of blood chemistry; Z79.899 Other long term (current) drug therapy
CPT/HCPCS: 47563; 43262; 43264; 36415; 71045; 74177; 74300; 74329; 76705; 80053; 81001; 83690; 83735; 83880; 84478; 84484; 85025; 88304; 93005; 94640; 96361; 96374; 96375; 96376; 99285; A9270; G0378; J0330; J0461; J0690; J1100; J1171; J1596; J1938; J2003; J2250; J2270; J2405; J2704; J3010; J3480; J7030; J7040; J7120; Q9966; Q9967

== ENCOUNTER 2024-11-29 09:46 | Outpatient (CLI) | payer OTHER, SELFPAY ==
[2024-11-29 10:35] LABS: Hematocrit 42.0 % (37.0-47.0); Hemoglobin 13.8 g/dL (12.0-15.0); Immature Granulocyte Percent A 0.2 % (0-0.5); Lymphocytes Absolute Auto 2.20 K/mm3 (0.9-3.2); Mean Corpuscular HGB Conc 32.9 g/dl (32-36); Mean Corpuscular Hemoglobin 28.6 pg (26-34); Mean Corpuscular Volume 87.1 fl (80-100); Nucleated Red Blood Cells Absolute Auto 0.000 K/mm3 (0.0-0.012); Nucleated Red Blood Cells Perc 0.0 % (0.0-0.2); Platelet Count Result 218 k/mm3 (150-375); Red Blood Count 4.82 M/mm3 (4.2-5.4); White Blood Count 5.7 K/mm3 (4.5-10.0)
[2024-11-29 10:59] LABS: Alanine Aminotransferase 19 U/L (6-35); Albumin Level 4.7 g/dL (3.5-5.1); Alkaline Phosphatase 80 U/L (38-126); Anion Gap 9 mmol/L (4-12); Aspartate Amino Transferase 31 U/L (14-36); Bilirubin,Total 0.4 mg/dL (0.2-1.3); Blood Urea Nitrogen 17 mg/dL (7-17); Calcium 9.3 mg/dL (8.4-10.2); Carbon Dioxide 27 mmol/L (22-30); Chloride 102 mmol/L (98-107); Cholesterol 249 mg/dL (0-200); Estimated Glomerular Filt Rate > 60; Glucose 89 mg/dL (65-110); HDL Direct 45 mg/dL; Potassium 4.0 mmol/L (3.4-5.0); Sodium 138 mmol/L (137-145); Total Protein 7.6 g/dL (6.3-8.2); Triglycerides 204 mg/dL (<150)
== END 2024-11-29 09:47 | disposition home or self-care (01) ==
LOC: ANHLAB 09:48
PROVIDERS: PCP Nurse Practitioner Family; Visit Provider Nurse Practitioner Family
DX: Z00.00 Encounter for general adult medical examination without abnormal findings (principal); R74.8 Abnormal levels of other serum enzymes
CPT/HCPCS: 36415; 80053; 80061; 85025